=== PATIENT | female | born 1945 | race Caucasian/White ===

== ENCOUNTER 2016-04-18 12:58 | Emergency (ER) | payer OTHER ==
[~2016-04-18] VITALS: Ht 154.9 cm; Wt 67.0 kg
[2016-04-18 13:08] VITALS: TEMP 36.9; Ht 154.9 cm; Wt 67.0 kg
[2016-04-18] MEDS ORDERED: ATOR-22 PO (13:15)
[2016-04-18] MEDS ORDERED: TPRSR/50 PO (13:15)
[2016-04-18] MEDS ORDERED: OMEG10007 PO (13:15)
[2016-04-18] MEDS ORDERED: ASPI81TA28 PO (13:15)
[2016-04-18] MEDS ORDERED: LOSA50TA6 PO (13:15)
--- NOTE | 2016-04-18 14:15 | DIAGNOSTIC IMAGING REPORT ---
RIGHT KNEE 3 VIEWS CLINICAL HISTORY: Right knee pain and swelling. COMPARISON: None FINDINGS: There is mild lateral patellar tilt. Alignment is otherwise anatomic. There is no acute fracture or suspicious lesion. There is a moderate to large right knee joint effusion. IMPRESSION: 1. No acute fracture. 2. Moderate to large right knee joint effusion. Electronically signed by: Cesar Hernandez M.D. 04/18/2016 2:13 PM Dictated Date/Time: 04/18/2016 2:12 PM
[2016-04-18 14:36] VITALS: BP 175/105; PULSE 95; O2SAT 99
[2016-04-18] MEDS ORDERED: ACETAMINOPHEN 325 MG TAB PO STA (14:56)
--- NOTE | 2016-04-20 17:31 | EMERGENCY ROOM VISIT NOTE ---
ED Visit Note First contact with patient: 13:40 Chief Complaint: Right knee pain. History of Present Illness: Ms. Clement is a 70-year-old white female who is brought into the ED via wheelchair complaining of medial and anterior right knee pain. Patient reports earlier this morning, approximately approximately 5-6 hours ago , she slipped on wet grass and twisted her knee. She then fell onto her knee. She reports immediately after the injury she had some mild pain but was able to stand up and ambulate. Over the course of the last 5 hours she reports she has been noticing increasing pain and swelling of the knee. Currently she places the majority her discomfort over the medial joint line in the anterior knee including the patella. She describes her pain is a throbbing and achy sensation. She rates her discomfort 10/10. Her pain is nonradiating. Her pain worsens with palpation, weightbearing, knee flexion beyond 20, last few degrees of extension and hyperextension. She has not identified any alleviating factors related to the pain. She has not taken any medication for pain prior to arrival at the hospital. She denies any lightheadedness or dizziness before her fall, striking her head or loss of consciousness at the time of the fall, any signs of head injury since the fall, neck pain, back pain, nausea, vomiting, pain, lower leg pain, ankle pain, lower leg weakness/numbness/tingling. Review of Systems: As noted above in history of present illness. 5 body systems were reviewed and found to be negative as noted above. Past Medical History: Hypertension. Current Medications: Lipitor, metoprolol, Cozaar, aspirin, omega-3 fish oil. Allergies to Medications: Latex, morphine. Social History: Patient is not employed; she feels safe in her home environment ; she denies tobacco and alcohol use. Physical Examination: Vital Signs: Date Time Temp Pulse Resp B/P Pulse Ox O2 Delivery O2 Flow Rate FiO2 04/18/16 14:36 95 175/105 99 04/18/16 13:08 36.9 90 18 179/96 100 Room Air GENERAL: 70-year-old female in mild distress due to pain, nontoxic-appearing, afebrile and hemodynamically stable. NEUROLOGICAL: Awake, alert and oriented to person, place and time. Answering questions appropriately and following commands. Good hand eye coordination. No focal motor sensory deficits. SKIN: Warm, dry and pink. No soft tissue trauma noted. RIGHT LOWER EXTREMITY: No gross bony deformity. No shortening or bowel rotation. No tenderness over the hip or thigh. Moderate diffuse tenderness throughout the entire knee with slight prominence over the medial joint line and patella. Positive ballottement test. Positive patellar apprehension test. Patient is difficult to evaluate due to pain and swelling. I do not appreciate any laxity of the collateral or cruciate ligaments. I am not able to test for meniscus. Decreased range of motion with only approximately 20 of flexion and the last few degrees of extension and hyperextension. With the knee stabilized she has full range of motion in plantar flexion and dorsiflexion of the ankle and flexion and extension of the toes. Throughout the foot the skin was warm and pink and capillary refill is brisk. She was able to distinguish light sensations through all dermatomes of the lower leg and foot. ED Course: Patient is assessed as noted above. Right Knee X-Rays: Were read by myself and the radiologist showing no acute fractures or dislocations. Radiologist notes mild lateral patellar tilting, moderate to large joint effusion. Patient was given ice and 650 mg of acetaminophen for pain and swelling. Patient was placed in a knee immobilizer and instructed on her walker use. Patient's case was reviewed with Dr. Mcelroy; we agreed on diagnostic approach, achieving, disposition and plan. Patient was educated about tonight's findings and instructed on her treatment plan; she verbalizes understanding and agreement with this plan. Clinical Impression: Right knee pain and swelling. Disposition: Patient discharged home in stable condition accompanied by family member; prior to departure she was reassessed and subjectively reported she was feeling much better discomfort 04/28. Plan: Comfort measures were discussed with the patient including use of acetaminophen , ice, knee immobilizer and walker use. Patient was encouraged to follow-up with orthopedic physician if no better in 7- 10 days. Patient was encouraged return ED for worsening/uncontrolled pain, uncontrolled swelling, leg weakness/numbness/tingling or any new/concerning symptoms.
== END 2016-04-18 15:15 | disposition home or self-care (01) ==
LOC: C.EDB 12:59 → C.EDD 15:15
DX: M25.561 Pain in right knee (principal); M25.461 Effusion, right knee; W01.0XXA Fall on same level from slipping, tripping and stumbling without subsequent striking against object, initial encounter; I10 Essential (primary) hypertension; Z79.82 Long term (current) use of aspirin; Z79.899 Other long term (current) drug therapy

== ENCOUNTER → 2016-05-09 | Outpatient (CLI) | payer OTHER ==
[~2016-05-09] MED LIST: ASPI81TA28 PO; ATOR-22 PO; LOSA50TA6 PO; MECL1TAB40 PO; OMEG10007 PO; ONDA4TAB65 PO; TPRSR/50 PO
--- NOTE | 2016-05-09 12:47 | MAMMOGRAPHY REPORT ---
UNILATERAL RIGHT DIGITAL DIAGNOSTIC MAMMOGRAM TOMOSYNTHESIS WITH CAD AND TARGETED RIGHT ULTRASOUND: 05/09/2016 CLINICAL HISTORY: 70-year-old woman with a history of the right breast asymmetry that was thought to be secondary to fat necrosis due to her dog jumping on her chest. She presents for a short follow- up in the right breast. TECHNIQUE: Right CC and MLO 2-D digital and tomosynthesis images, spot compression right MLO 2-D dig ital and tomosynthesis images were obtained. Current study was also evaluated with a Computer Aided Detection (CAD) system. COMPARISON: Comparison is made to exams dated: 02/08/2016 ultrasound, 02/08/2016 mammogram, 016 mammogram, and 01/29/2015 mammogram - [facility]. BREAST COMPOSITION: The tissue of the right breast is heterogeneously dense, which may obscure smal l masses. FINDINGS: The previously observed 9 mm asymmetry in the upper inner far posterior right breast is no longer identified, confirming benignity. There are stable benign rim calcifications throughout the right breast. No new suspicious mass, architectural distortion or cluster of microcalcifications i s seen. Targeted ultrasound was performed in the 12:00, 1:00 and 2:00 axes of the right breast, 12 cm from t he nipple, in the area of previously observed mixed echogenicity mass thought to represent fat necro sis. No mass is identified in the 1:00 breast, 12 cm from the nipple. This is concordant with the mammographic findings and confirms benign fat necrosis/resolving hematoma. IMPRESSION: ACR BI-RADS CATEGORY 2: BENIGN, TARGETED ULTRASOUND ACR BI-RADS CATEGORY 2: BENIGN The right breast asymmetry is no longer seen mammographically, and the sonographic mass has also res olved, confirming a resolved hematoma and/or fat necrosis. There is no mammographic or targeted son ographic evidence of malignancy. Return to annual mammogram screening schedule is recommended. The patient has been verbally notified of the results. Approximately 10% of breast cancers are not detected with mammography. A negative mammographic repor t should not delay biopsy if a clinically suggestive mass is present. Beba Rivera M.D. ay/:05/09/2016 11:26:57 Bank Vault Clerk: Elly Fernandez, [facility] letter sent: Normal 1/2 BI-RADS Code: ACR BI-RADS Category 2: Benign Ultrasound BI-RADS: ACR BI-RADS Category 2: Benign
== END | disposition home or self-care (01) ==
LOC: C.MAMM 10:49
PROVIDERS: ATTEND Family Medicine
DX: N64.9 Disorder of breast, unspecified (principal)

== ENCOUNTER → 2016-05-11 | Outpatient (CLI) | payer OTHER ==
[2016-05-11 11:24] LABS: ALT/SGPT 31 U/L (12-78); AST/SGOT 17 U/L (15-37); BLOOD UREA NITROGEN 14 mg/dl (7-18); BUN/CREATININE RATIO 17.8 (10-20); CALCIUM 8.6 mg/dl (8.5-10.1); CARBON DIOXIDE 31 mmol/L (21-32); CHLORIDE 102 mmol/L (98-107); CREATININE 0.79 mg/dl (0.60-1.20); GLUCOSE 88 mg/dl (70-99); SODIUM 137 mmol/L (136-145)
[2016-05-11 11:25] LABS: ALB/GLOB RATIO 0.9 (0.9-2); ALKALINE PHOSPHATASE 74 U/L (45-117); CHOLESTEROL 131 mg/dl (0-200); CHOLESTEROL/HDL RATIO 2.3; HDL CHOLESTEROL 57 mg/dl; LDL CHOLESTEROL CALCULATED 59 mg/dl; TRIGLYCERIDES 76 mg/dl (0-150); VERY LOW DENSITY LIPOPROT CALC 15 mg/dl
[2016-05-11 11:37] LABS: ESTIMATED AVERAGE GLUCOSE 120 mg/dl; HA1C FLAG Normal (Normal)
--- NOTE | 2016-05-16 13:43 | CODING QUERY MEDICAL NECESSITY ---
SUPPORTING DIAGNOSIS NEEDED A supporting diagnosis is required for the test/procedure performed on this patient in order for us to be reimbursed by the patient's insurance. Please provide a supporting diagnosis for the following test/procedure listed below next to the test name along with your signature. *If there is no additional diagnosis for this patient that would support the following test/procedure please document that below next to the test/procedure. Test(s)/Procedure(s) that require a supporting diagnosis: DOS 05/11 * Hba1c DIAGNOSIS: Provider Signature: Date: Thank you Nena Godfrey Health Information Management Once completed, please kindly fax back to [phone] For questions please call [phone]
== END | disposition home or self-care (01) ==
LOC: C.LABBC 07:50
PROVIDERS: ATTEND Family Medicine
DX: I10 Essential (primary) hypertension (principal); E78.5 Hyperlipidemia, unspecified; E55.9 Vitamin D deficiency, unspecified; R73.03 Prediabetes

== ENCOUNTER 2016-06-14 12:12 | Observation (INO) | payer OTHER ==
[~2016-06-14] VITALS: Ht 165.1 cm; Wt 68.9 kg
[~2016-06-14 12:12] MED LIST changes: -MECL1TAB40 PO; -ONDA4TAB65 PO
[2016-06-14] MEDS ORDERED: SODIUM CHLORIDE 0.9% 1000ML 1,000 ML IV SCH (12:28)
--- NOTE | 2016-06-14 12:32 | EMERGENCY ROOM VISIT NOTE ---
History Report prepared by Natalie: Pop Bryan Under the Supervision of: Dr. Uli Wilcox D.O. First contact with patient: 12:22 Chief Complaint: WEAKNESS Stated Complaint: POSS. CVA History of Present Illness The patient is a 70 year old female who presents to the Emergency Room via EMS with complaints of persistent left-sided weakness that started about an hour ago. She states that she was shopping at [employer] and all of a sudden, she got really hot, dizzy, and nauseous. Her eyes started being unable to focus, she was very thirst, and she was dry heaving. The patient had weakness only on her left side, which has persisted. Her eyes are now able to focus. The patient then went straight to her primary care physician's office, and was told to come here for evaluation. The patient was given Valium and Zofran pre-hospital. She denies any vomiting. The patient notes that she had abdominal pain a few days ago but is not having it now. She has hyperlipidemia. The patient does not use tobacco products or drink alcohol. She has no cancer history or surgical history. Source of History: patient, spouse/significant other, EMS Onset: An hour ago Position: other (left-sided) Quality: other (weakness) Timing: other (persistent) Associated Symptoms: + headache, + nausea, No vomiting Note: Associated symptoms: Suddenly got really hot, dizzy. Was dry heaving. Eyes were unable to focus (has resolved). Review of Systems See HPI for pertinent positives & negatives. A total of 10 systems reviewed and were otherwise negative. Past Medical & Surgical Medical Problems: (1) HTN (hypertension) (2) Weakness Family History Diabetes mellitus Heart disease Hypertension Social History Smoking Status: Current Every Day Smoker Smokeless Tobacco Use: No Alcohol Use: occasionally Marital Status: Housing Status: lives with family Occupation Status: retired Current/Historical Medications Scheduled Aspirin (Aspirin Ec), 81 MG PO DAILY Atorvastatin (Lipitor), 20 MG PO DAILY Fish Oil ([place]-3), 1 CAP PO DAILY Losartan Potassium (Cozaar), 50 MG PO BID Meclizine HCl (Meclizine HCl), 1 TAB PO TID Meclizine HCl (Meclizine HCl), 1 TAB PO TID Metoprolol Succinate (Metoprolol Succinate ER), 50 MG PO BID Allergies Coded Allergies: Latex (Verified Allergy, Unknown, lip swelling, 06/14/16) Morphine (Verified Allergy, Unknown, headache,n/v, 06/14/16) Physical Exam Vital Signs Date Time Temp Pulse Resp B/P Pulse Ox O2 Delivery O2 Flow Rate FiO2 06/14/16 16:37 87 18 137/87 98 Room Air 06/14/16 16:31 87 06/14/16 14:30 82 21 161/104 99 06/14/16 14:15 173/104 06/14/16 14:01 176/135 06/14/16 14:00 80 18 97 06/14/16 13:45 152/96 06/14/16 13:30 79 21 164/98 97 06/14/16 13:16 160/93 06/14/16 13:00 83 29 131/102 06/14/16 12:46 80 20 158/105 97 Room Air 06/14/16 12:24 83 06/14/16 12:23 96 Room Air 06/14/16 12:23 36.6 91 20 155/93 95 Room Air Physical Exam GENERAL: Patient is awake, alert, somewhat anxious appearing but overall comfortable. EYES: The conjunctivae are clear. The pupils are round and reactive. Horizontal nystagmus in both directions. EARS, NOSE, MOUTH AND THROAT: The nose is without any evidence of any deformity. Mucous membranes are moist tongue is midline NECK: The neck is nontender and supple. RESPIRATORY: Normal respiratory effort is noted there is no evidence of wheezing rhonchi or rales CARDIOVASCULAR: Regular rate and rhythm noted there no murmurs rubs or gallops normal S1 normal S2 GASTROINTESTINAL: The abdomen is soft. Bowel sounds are present in all quadrants. Abdomen is nontender MUSCULOSKELETAL/EXTREMITIES: There is no evidence of gross deformity full range of motion is noted in the hips and shoulders SKIN: There is no obvious evidence of any rash. There are no petechiae, pallor or cyanosis noted. NEUROLOGIC: Patient is awake alert and oriented x3. No facial droop noted. Strength was symmetric in both upper and lower extremities. Medical Decision & Procedures ER Provider Diagnostic Interpretation: Radiology results as stated below per my review and radiologist interpretation: CT SCAN OF THE BRAIN WITHOUT IV CONTRAST CLINICAL HISTORY: Strokelike symptoms. COMPARISON STUDY: No priors. TECHNIQUE: Unenhanced axial CT scan of the brain is performed from the vertex to the skull base. CT DOSE: 537.48 mGy.cm FINDINGS: Brain parenchyma: There is minimal subcortical and periventricular microangiopathic change. There is no hemorrhage, mass effect, or evidence of acute territorial ischemia by CT criteria. Mendes-white matter is preserved. No extra-axial fluid collection is seen. Ventricles, sulci, cisterns: Prominent secondary to involutional change. Intracranial vasculature: There is minimal atherosclerotic calcification of the cavernous carotid arteries. Calvarium: Unremarkable. Sinuses and mastoids: The visualized paranasal sinuses are clear. The mastoid air cells are well pneumatized. Orbits: The bony orbits are grossly intact. IMPRESSION: There is no hemorrhage, mass effect, or evidence of acute territorial ischemia by CT criteria. Electronically signed by: Shayan Harris M.D. 06/14/2016 1:06 PM Dictated Date/Time: 06/14/2016 1:04 PM CHEST ONE VIEW PORTABLE CLINICAL HISTORY: Stroke COMPARISON STUDY: No previous studies for comparison. FINDINGS: The heart is borderline enlarged. There is no failure. There is no focal pulmonary consolidation. There are no pleural effusions. 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 Electronically signed by: Zeeshan Reese M.D. 06/14/2016 12:44 PM Dictated Date/Time: 06/14/2016 12:44 PM Laboratory Results Test 06/14/16 12:05 06/14/16 13:09 Immature Granulocyte % (Auto) 0.1 % White Blood Count 7.13 K/uL (4.8-10.8) Red Blood Count 4.86 M/uL (4.2-5.4) Hemoglobin 12.9 g/dL (12.0-16.0) Hematocrit 40.0 % (37-47) Mean Corpuscular Volume 82.3 fL (80-100) Mean Corpuscular Hemoglobin 26.5 pg (25-34) Mean Corpuscular Hemoglobin Concent 32.3 g/dl (32-36) Platelet Count 310 K/uL (130-400) Mean Platelet Volume 9.6 fL (7.4-10.4) Neutrophils (%) (Auto) 58.9 % Lymphocytes (%) (Auto) 30.9 % Monocytes (%) (Auto) 7.0 % Eosinophils (%) (Auto) 2.5 % Basophils (%) (Auto) 0.6 % Neutrophils # (Auto) 4.20 K/uL (1.4-6.5) Lymphocytes # (Auto) 2.20 K/uL (1.2-3.4) Monocytes # (Auto) 0.50 K/uL (0.11-0.59) Eosinophils # (Auto) 0.18 K/uL (0-0.5) Basophils # (Auto) 0.04 K/uL (0-0.2) Immature Granulocyte # (Auto) 0.01 K/uL (0.00-0.02) Prothrombin Time 10.7 SECONDS (9.0-12.0) Prothromb Time International Ratio 1.0 (0.9-1.1) Activated Partial Thromboplast Time 25.2 SECONDS (21.0-31.0) Partial Thromboplastin Ratio 1.0 Estimated Average Glucose 114 mg/dl Hemoglobin A1c 5.6 % (4.5-5.6) Total Bilirubin 0.3 mg/dl (0.2-1) Direct Bilirubin 0.1 mg/dl (0-0.2) Aspartate Amino Transf (AST/SGOT) 22 U/L (15-37) Alanine Aminotransferase (ALT/SGPT) 35 U/L (12-78) Alkaline Phosphatase 78 U/L (45-117) Total Creatine Kinase 88 U/L (26-192) Creatine Kinase MB 1.1 ng/ml (0.5-3.6) Creatine Kinase MB Ratio 1.3 (0-3.0) Total Protein 7.7 gm/dl (6.4-8.2) Albumin 3.9 gm/dl (3.4-5.0) Urine Color YELLOW Urine Appearance CLEAR (CLEAR) Urine pH 8.0 (4.5-7.5) Urine Specific [place] 1.016 (1.000-1.030) Urine Protein NEG (NEG) Urine Glucose (UA) NEG (NEG) Urine Ketones NEG (NEG) Urine Occult Blood 2+ (NEG) Urine Nitrite NEG (NEG) Urine Bilirubin NEG (NEG) Urine Urobilinogen NEG (NEG) Urine Leukocyte Esterase NEG (NEG) Urine WBC (Auto) 0 /hpf (0-5) Urine RBC (Auto) >30 /hpf (0-4) Urine Hyaline Casts (Auto) 0 /lpf (0-5) Urine Epithelial Cells (Auto) 10-20 /lpf (0-5) Urine Bacteria (Auto) NEG (NEG) Urine Opiates Screen NEG (NEG) Urine Methadone, Qualitative NEG (NEG) Urine Barbiturates NEG (NEG) Urine Phencyclidine (PCP) Level NEG (NEG) Ur Amphetamine/Methamphetamine NEG (NEG) MDMA (Ecstasy) Screen NEG (NEG) Urine Benzodiazepines Screen NEG (NEG) Urine Cocaine Metabolite NEG (NEG) Urine Marijuana (THC) NEG (NEG) Laboratory results per my review. Medications Administered Medications (Trade) Dose Ordered Sig/Jesús Route Start Time Stop Time Status Last Admin Dose Admin Sodium Chloride (Nss 1000ml) 1,000 ml @ 50 mls/hr Q20H IV 06/14/16 12:28 06/14/16 16:58 DC 06/14/16 12:28 50 MLS/HR ECG Indication: other (dizziness) Rate (beats per minute): 85 Rhythm: normal sinus Findings: no ectopy, other (LVH noted by voltage criteria) Comparison ECG Date: no prior available ED Course 1222: The patient was evaluated in room C3. A complete history and physical examination were performed. 1228: Ordered NSS 1000 ml @ 50 mls/hr IV. 1459: I reevaluated the patient and she is resting comfortably. The patient verbally expressed understanding and agreement with the treatment plan. The patient will be evaluated for further treatment. 1515: I discussed the patient with Dr. Cao - [facility] electroencephalogram technologist. She will evaluate the patient for further treatment. Medical Decision Prior records/ancillary studies reviewed. Triage Nursing notes reviewed. Differential diagnosis: Etiologies such as benign positional vertigo, dehydration, hypovolemia, anemia, tumor, infection, hypoglycemia, electrolyte abnormalities, cardiac sources, intracerebral event, toxicologic, neurologic, as well as others were entertained. The patient is a 70-year-old female who presented to the emergency department for an evaluation of vertigo. The patient also complained of numbness and subjective weakness over the left side of her body. These symptoms significantly improved prior to arrival. She was treated with Zofran and Valium by the prehospital personnel prior to arrival. She had no weakness on physical exam but still had some degree of vertigo. I discussed the patient's laboratory and radiographic studies with her. It still is possible this could represent a TIA or possibly vertebrobasilar insufficiency. For this reason I discussed her case with the on-call [facility] hospitalist group. They've agreed to evaluate the patient in the emergency department for further management and disposition. Consults Time Called: 1505 Consulting Physician: Dr. Nash MIRANDA electroencephalogram technologist Returned Call: 1515 I discussed the patient with Dr. Nash MIRANDA electroencephalogram technologist. She will evaluate the patient for further treatment. Impression Primary Impression: TIA (transient ischemic attack) Additional Impression: Vertigo Scribe Attestation The scribe's documentation has been prepared under my direction and personally reviewed by me in its entirety. I confirm that the note above accurately reflects all work, treatment, procedures, and medical decision making performed by me. Reason t-PA Not Given Treatment not indicated Strict Exclusion Criteria Complete resolution of symptoms (NI Departure Information Dispostion Being Evaluated By Hospitalist Prescriptions Meclizine HCl (Meclizine HCl) 12.5 Mg Tab 1 TAB PO TID for 10 Days, #30 TAB Prov: Brittney Russell MD 06/15/16 Meclizine HCl (Meclizine HCl) 12.5 Mg Tab 1 TAB PO TID for 10 Days, #30 TAB Prov: Brittney Russell MD 06/15/16 Referrals Herminia Garcia DO (PCP) Patient Instructions My [facility] Health Problem Qualifiers
[2016-06-14 12:44] LABS: BASO % 0.6 %; BASO ABS # 0.04 K/uL (0-0.2); COMPLETE YES; EOS % 2.5 %; IG% 0.1 %; LYMPH % 30.9 %; MEAN CELL VOLUME 82.3 fL (80-100); MEAN CORPUSCULAR HEMOGLOBIN 26.5 pg (25-34); MEAN CORPUSCULAR HGB CONC 32.3 g/dl (32-36); MEAN PLATELET VOLUME 9.6 fL (7.4-10.4); NEUT % 58.9 %; PLATELET COUNT 310 K/uL (130-400); RED BLOOD COUNT 4.86 M/uL (4.2-5.4); WHITE BLOOD COUNT 7.13 K/uL (4.8-10.8)
--- NOTE | 2016-06-14 12:47 | DIAGNOSTIC IMAGING REPORT ---
CHEST ONE VIEW PORTABLE CLINICAL HISTORY: Stroke COMPARISON STUDY: No previous studies for comparison. FINDINGS: The heart is borderline enlarged. There is no failure. There is no focal pulmonary consolidation. There are no pleural effusions. 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 Electronically signed by: Zeeshan Reese M.D. 06/14/2016 12:44 PM Dictated Date/Time: 06/14/2016 12:44 PM
[2016-06-14 12:51] LABS: PROTHROMBIN TIME (PATIENT) 10.7 SECONDS (9.0-12.0)
[2016-06-14 12:55] LABS: CALCIUM 9.4 mg/dl (8.5-10.1)
[2016-06-14 12:56] LABS: ALT/SGPT 35 U/L (12-78); BLOOD UREA NITROGEN 22 mg/dl (7-18); BUN/CREATININE RATIO 29.6 (10-20); CARBON DIOXIDE 23 mmol/L (21-32); CHLORIDE 100 mmol/L (98-107); CREATININE 0.73 mg/dl (0.60-1.20); GLUCOSE 151 mg/dl (70-99); POTASSIUM 3.4 mmol/L (3.5-5.1); SODIUM 134 mmol/L (136-145)
[2016-06-14 13:01] LABS: ALKALINE PHOSPHATASE 78 U/L (45-117); AST/SGOT 22 U/L (15-37); CKMB/CK RATIO 1.3 (0-3.0)
--- NOTE | 2016-06-14 13:08 | DIAGNOSTIC IMAGING REPORT ---
CT SCAN OF THE BRAIN WITHOUT IV CONTRAST CLINICAL HISTORY: Strokelike symptoms. COMPARISON STUDY: No priors. TECHNIQUE: Unenhanced axial CT scan of the brain is performed from the vertex to the skull base. CT DOSE: 537.48 mGy.cm FINDINGS: Brain parenchyma: There is minimal subcortical and periventricular microangiopathic change. There is no hemorrhage, mass effect, or evidence of acute territorial ischemia by CT criteria. Mendes-white matter is preserved. No extra-axial fluid collection is seen. Ventricles, sulci, cisterns: Prominent secondary to involutional change. Intracranial vasculature: There is minimal atherosclerotic calcification of the cavernous carotid arteries. Calvarium: Unremarkable. Sinuses and mastoids: The visualized paranasal sinuses are clear. The mastoid air cells are well pneumatized. Orbits: The bony orbits are grossly intact. IMPRESSION: There is no hemorrhage, mass effect, or evidence of acute territorial ischemia by CT criteria. Electronically signed by: Shayan Harris M.D. 06/14/2016 1:06 PM Dictated Date/Time: 06/14/2016 1:04 PM
[2016-06-14 13:35] LABS: MANUAL MICROSCOPIC REQUIRED? NO; REVIEW REQ? NO; URINE APPEARANCE CLEAR (CLEAR); URINE BILIRUBIN NEG (NEG); URINE COLOR YELLOW; URINE NITRITE NEG (NEG); URINE SPECIFIC GRAVITY 1.016 (1.000-1.030); UROBILINOGEN NEG (NEG)
[2016-06-14 14:29] LABS: BENZODIAZEPINE, URINE NEG (NEG); COCAINE,URINE NEG (NEG); PHENCYCLIDINE, URINE NEG (NEG)
[2016-06-14] MEDS ORDERED: MAGNESIUM HYDROXIDE SUSP 30 ML UDC PO PRN (16:45)
[2016-06-14] MEDS ORDERED: PHARMACIST DISCHARGE MED REC CONSULT PRN (16:45)
[2016-06-14] MEDS ORDERED: ALUMINUM/MAGNESIUM/SIMETH (MAALOX MAX) 30 ML UDC PO PRN (16:45)
[2016-06-14] MEDS ORDERED: POLYETHYLENE (MIRALAX) 17 GM PACK PO PRN (16:45)
[2016-06-14] MEDS ORDERED: ACETAMINOPHEN 325 MG TAB PO PRN (16:45)
[2016-06-14] MEDS ORDERED: ONDANSETRON INJ 2 MG/ML 2 ML VIAL IV PRN (16:45)
[2016-06-14] MEDS ORDERED: POTASSIUM CHLORIDE 10 MEQ TABCR PO STA (16:57)
[2016-06-14 17:20] VITALS: O2SAT 98; Ht 165.1 cm; Wt 68.9 kg
[2016-06-14] MEDS ORDERED: IV FLUIDS COMPLETED PRN (17:30)
--- NOTE | 2016-06-14 18:31 | DIAGNOSTIC IMAGING REPORT ---
BILATERAL CAROTID DOPPLER STUDY HISTORY: Possible TIA COMPARISON: None. TECHNIQUE: Real-time, grayscale, and color Doppler sonography of the carotid arteries was performed. Imaging reviewed in the transverse and longitudinal planes. All measurements were calculated based on NASCET criteria. FINDINGS: Antegrade flow is seen in the bilateral vertebral arteries. The brachial pressures are hemodynamically similar. Focus of mild calcified plaque within the right carotid bulb. The peak systolic velocity within the right ICA is 42 cm/s. The right systolic ratio is 0.7. The peak systolic velocity within the left ICA is 71 cm/s. The left systolic ratio is 1. IMPRESSION: No hemodynamically significant stenosis seen within the carotid arteries. Electronically signed by: Barber Sepulveda M.D. 06/14/2016 6:29 PM Dictated Date/Time: 06/14/2016 6:28 PM
[2016-06-14 18:35] VITALS: BP 153/87; PULSE 91; TEMP 36.6; O2SAT 97
--- NOTE | 2016-06-14 19:20 | History and Physical ---
History & Physical Date & Time of Service: Jun 14, 2016 at 19:01 Chief Complaint: Vertigo, Weakness Primary Care Physician: Herminia Garcia DO History of Present Illness Source: patient, parent, clinic records, hospital records This is a 70 y/o female with a history of hypertension, hyperlipidemia, and restless leg syndrome who presented to the ED on 06/14 with weakness, dizziness and nausea. The patient was out shopping with her when she suddenly felt warm all over. This was accompanied with dizziness and a sensation of the room spinning as well as nausea. The patient states she started dry heaving but denies actually vomiting. She states that she felt generally weak but felt that she might be somewhat weaker on the left side. Patient denies any facial droop, slurred speech, numbness or tingling, sudden vision loss or loss of consciousness. Despite her weakness/dizziness, the patient was able to walk out of the store unassisted without any difficulties. The patient states that a few nights ago she did experienced some weakness and pain in her left leg that had resolved on its own. She is unsure if she truly had left-sided weakness today or if she is just more aware of her left side due to the pain in her left leg previously. In the ambulance en route to the ED the patient received Valium and Zofran. Her nausea and weakness have resolved, and she no longer reports that the room spinning or any visual problems. She is still feeling lightheaded whenever she sits up or gets up to go the bathroom. The patient denies fevers, chills, sweats, chest pain, palpitations, claudication, cough, wheezing, shortness of breath, vomiting, abdominal pain, dysuria, hematuria, urinary retention, paralysis, numbness and tingling. Past Medical/Surgical History Medical Problems: (1) HTN (hypertension) Status: Chronic HLD RLS Nontoxic goiter Family History Coronary artery disease Diabetes mellitus Heart disease Hypertension Myelodysplasia Myocardial infarction Ovarian cancer Social History Smoking Status: Never Smoker Smokeless Tobacco Use: No Alcohol Use: socially (1 glass of wine with dinner) Drug Use: none Marital Status: Housing status: lives with significant other Occupational Status: retired Allergies Coded Allergies: Latex (Verified Allergy, Unknown, lip swelling, 06/14/16) Morphine (Verified Allergy, Unknown, headache,n/v, 06/14/16) Home Medications Scheduled Aspirin (Aspirin Ec), 81 MG PO DAILY Atorvastatin (Lipitor), 20 MG PO DAILY Fish Oil ([place]-3), 1 CAP PO DAILY Losartan Potassium (Cozaar), 50 MG PO BID Metoprolol Succinate (Metoprolol Succinate ER), 50 MG PO BID Review of Systems Constitutional: + problem reported (lightheaded), + weakness (resolved), No chills, No fever, No sweats Eyes: + problem reported (room appeared to be spinning. Difficulty focusing. Now resolved), No eye pain, No worsening of vision ENT: No hearing loss, No sore throat, No trouble swallowing Respiratory: No cough, No shortness of breath, No wheezing Cardiovascular: No chest pain, No claudication, No palpitations Abdomen: + nausea (resolved), No pain, No vomiting Musculoskeletal: No calf pain, No joint pain, No muscle pain Genitourinary - Female: No dysuria, No hematuria, No urinary retention Neurologic: + vertigo (resolved), No numbness/tingling, No paralysis, No weakness Integumentary: No color change, No itch, No rash Physical Exam Vital Signs Date Time Temp Pulse Resp B/P Pulse Ox O2 Delivery O2 Flow Rate FiO2 06/14/16 17:55 88 24 142/84 96 Room Air 06/14/16 17:20 98 Room Air 06/14/16 16:37 87 18 137/87 98 Room Air 06/14/16 16:31 87 06/14/16 14:30 82 21 161/104 99 06/14/16 14:15 173/104 06/14/16 14:01 176/135 06/14/16 14:00 80 18 97 06/14/16 13:45 152/96 06/14/16 13:30 79 21 164/98 97 06/14/16 13:16 160/93 06/14/16 13:00 83 29 131/102 06/14/16 12:46 80 20 158/105 97 Room Air 06/14/16 12:24 83 06/14/16 12:23 96 Room Air 06/14/16 12:23 36.6 91 20 155/93 95 Room Air General Appearance: WD/WN, no apparent distress Head: normocephalic, atraumatic Eyes: normal inspection, PERRL, EOMI ENT: normal ENT inspection, hearing grossly normal, pharynx normal Neck: supple, no JVD, trachea midline Respiratory/Chest: lungs clear, normal breath sounds, no respiratory distress Cardiovascular: regular rate, rhythm, no gallop, no murmur Abdomen/GI: normal bowel sounds, non tender, soft Extremities/Musculoskelatal: normal inspection, no calf tenderness, no pedal edema Neurologic/Psych: no motor/sensory deficits, alert, normal mood/affect, oriented x 3, + pertinent finding (lightheadedness elicited when patient asked to set up) Skin: normal color, warm/dry, no rash Diagnostics Laboratory Results Results Past 24 Hours Test 06/14/16 12:05 06/14/16 13:09 Range/Units White Blood Count 7.13 4.8-10.8 K/uL Red Blood Count 4.86 4.2-5.4 M/uL Hemoglobin 12.9 12.0-16.0 g/dL Hematocrit 40.0 37-47 % Mean Corpuscular Volume 82.3 80-100 fL Mean Corpuscular Hemoglobin 26.5 25-34 pg Mean Corpuscular Hemoglobin Concent 32.3 32-36 g/dl Platelet Count 310 130-400 K/uL Mean Platelet Volume 9.6 7.4-10.4 fL Neutrophils (%) (Auto) 58.9 % Lymphocytes (%) (Auto) 30.9 % Monocytes (%) (Auto) 7.0 % Eosinophils (%) (Auto) 2.5 % Basophils (%) (Auto) 0.6 % Neutrophils # (Auto) 4.20 1.4-6.5 K/uL Lymphocytes # (Auto) 2.20 1.2-3.4 K/uL Monocytes # (Auto) 0.50 0.11-0.59 K/uL Eosinophils # (Auto) 0.18 0-0.5 K/uL Basophils # (Auto) 0.04 0-0.2 K/uL RDW Standard Deviation 43.1 36.4-46.3 fL RDW Coefficient of Variation 14.3 11.5-14.5 % Immature Granulocyte % (Auto) 0.1 % Immature Granulocyte # (Auto) 0.01 0.00-0.02 K/uL Prothrombin Time 10.7 9.0-12.0 SECONDS Prothromb Time International Ratio 1.0 0.9-1.1 Activated Partial Thromboplast Time 25.2 21.0-31.0 SECONDS Partial Thromboplastin Ratio 1.0 Sodium Level 134 136-145 mmol/L Potassium Level 3.4 3.5-5.1 mmol/L Chloride Level 100 98-107 mmol/L Carbon Dioxide Level 23 21-32 mmol/L Anion Gap 11.0 3-11 mmol/L Blood Urea Nitrogen 22 7-18 mg/dl Creatinine 0.73 0.60-1.20 mg/dl Est Creatinine Clear Calc Drug Dose 67.5 ml/min Estimated GFR () 97.4 Estimated GFR (Non- 84.0 BUN/Creatinine Ratio 29.6 10-20 Random Glucose 151 70-99 mg/dl Calcium Level 9.4 8.5-10.1 mg/dl Total Bilirubin 0.3 0.2-1 mg/dl Direct Bilirubin 0.1 0-0.2 mg/dl Aspartate Amino Transf (AST/SGOT) 22 15-37 U/L Alanine Aminotransferase (ALT/SGPT) 35 12-78 U/L Alkaline Phosphatase 78 45-117 U/L Total Creatine Kinase 88 26-192 U/L Creatine Kinase MB 1.1 0.5-3.6 ng/ml Creatine Kinase MB Ratio 1.3 0-3.0 Troponin I < 0.015 0-0.045 ng/ml Total Protein 7.7 6.4-8.2 gm/dl Albumin 3.9 3.4-5.0 gm/dl Urine Color YELLOW Urine Appearance CLEAR CLEAR Urine pH 8.0 4.5-7.5 Urine Specific [place] 1.016 1.000-1.030 Urine Protein NEG NEG Urine Glucose (UA) NEG NEG Urine Ketones NEG NEG Urine Occult Blood 2+ NEG Urine Nitrite NEG NEG Urine Bilirubin NEG NEG Urine Urobilinogen NEG NEG Urine Leukocyte Esterase NEG NEG Urine WBC (Auto) 0 0-5 /hpf Urine RBC (Auto) >30 0-4 /hpf Urine Hyaline Casts (Auto) 0 0-5 /lpf Urine Epithelial Cells (Auto) 10-20 0-5 /lpf Urine Bacteria (Auto) NEG NEG Urine Opiates Screen NEG NEG Urine Methadone, Qualitative NEG NEG Urine Barbiturates NEG NEG Urine Phencyclidine (PCP) Level NEG NEG Ur Amphetamine/Methamphetamine NEG NEG MDMA (Ecstasy) Screen NEG NEG Urine Benzodiazepines Screen NEG NEG Urine Cocaine Metabolite NEG NEG Urine Marijuana (THC) NEG NEG Diagnostic Radiology Reviewed the following studies and agree with interpretation as follows: Patient Name: HARDEEP SANTAMARIA Unit Number: [id number] Dictated: 06/14/161303 Transcribed: 06/14/161303 EV Printed Date/Time: [~ rep prt dt]/[~ rep prt tm] [~ rep ct labl] - [~ rep ct ivnm] [facility] [place] [address] Dictated: 06/14/161303 Transcribed: 06/14/161303 EV Printed Date/Time: [~ rep prt dt]/[~ rep prt tm] [~ rep ct labl] - [~ rep ct ivnm] Patient: HARDEEP SANTAMARIA Address1: [address] Rec: [id number] Address2: Acct ID: [id number] [facility] Zip: [place] [address] Date: 1945 Sex: F Room/Bed: Ref Phy: Herminia Garcia DO SC: CMarahEDC Att Phy: Report #: [id number] Yovana Phy: Herminia Garcia DO Test: HWO Admit Phy: Academic Records Specialist: ANGEL Interpreting Phy: Shayan Harris M.D. Diagnosis: POSS. CVA Ordering Phy: Uli Wilcox D.O. Service Date: 06/14/16 Admit Date: 06/14/16 MNE: PWRSCRIBE CONF: DICTATED BY: Shayan Harris M.D.]] CC: Uli Wilcox DO Ricotta, Cara M., DO Endcc: [~ rep ct add3]] CT SCAN OF THE BRAIN WITHOUT IV CONTRAST CLINICAL HISTORY: Strokelike symptoms. COMPARISON STUDY: No priors. TECHNIQUE: Unenhanced axial CT scan of the brain is performed from the vertex to the skull base. CT DOSE: 537.48 mGy.cm FINDINGS: Brain parenchyma: There is minimal subcortical and periventricular microangiopathic change. There is no hemorrhage, mass effect, or evidence of acute territorial ischemia by CT criteria. Mendes-white matter is preserved. No extra-axial fluid collection is seen. Ventricles, sulci, cisterns: Prominent secondary to involutional change. Intracranial vasculature: There is minimal atherosclerotic calcification of the cavernous carotid arteries. Calvarium: Unremarkable. Sinuses and mastoids: The visualized paranasal sinuses are clear. The mastoid air cells are well pneumatized. Orbits: The bony orbits are grossly intact. IMPRESSION: There is no hemorrhage, mass effect, or evidence of acute territorial ischemia by CT criteria. Electronically signed by: Shayan Harris M.D. 06/14/2016 1:06 PM Dictated Date/Time: 06/14/2016 1:04 PM The status of this report is Signed. Draft = Not yet reviewed or approved by Radiologist. Signed = Reviewed and approved by Radiologist. <AttendingPhy></AttendingPhy> <FamilyPhy>Herminia Garcia DO</FamilyPhy> < PrimaryPhy>Herminia Garcia DO</PrimaryPhy> <UnitNumber>[id number]</UnitNumber > <VisitNumber>[id number]</VisitNumber> <PatientName>HARDEEP SANTAMARIA</ PatientName> <DateOfBirth>1945</DateOfBirth> <Location>[facility]</Location> < ServiceDate>06/14/16</ServiceDate> <MNE>ESINDI</MNE> <OrderingPhy>Uli Wilcox D.O.</OrderingPhy> <OrderingPhyMNE>f rep ord dr hudson</OrderingPhyMNE> <DictatingPhyMNE>f rep dict dr hudson</DictatingPhyMNE> <CCListMNE>f rep ct [facility]</ CCListMNE> <AdmittingPhyMNE>f pt admit dr hudson</AdmittingPhyMNE> <AttendingPhyMNE >f pt attend dr hudson</AttendingPhyMNE> <ConsultingPhyMNE>f pt consult dr hudson</ConsultingPhyMNE> <FamilyPhyMNE>f pt fam dr hudson</FamilyPhyMNE> <OtherPhyMNE>f pt other dr hudson</OtherPhyMNE> < PrimaryPhyMNE>f pt prim care dr hudson</PrimaryPhyMNE> <ReferringPhyMNE>f pt referring dr hudson</ReferringPhyMNE> Patient Name: HARDEEP SANTAMARIA Unit Number: [id number] Dictated: 06/14/161243 Transcribed: 06/14/161243 ARG Printed Date/Time: [~ rep prt dt]/[~ rep prt tm] [~ rep ct labl] - [~ rep ct ivnm] [facility] [place] [address] Dictated: 06/14/161243 Transcribed: 06/14/161243 ARG Printed Date/Time: [~ rep prt dt]/[~ rep prt tm] [~ rep ct labl] - [~ rep ct ivnm] Patient: HARDEEP SANTAMARIA Address1: [address] [place] [address] Rec: [id number] Address2: Acct ID: [id number] [facility] Zip: [place] [address] Date: 1945 Sex: F Room/Bed: Ref Phy: Herminia Garcia DO SC: CMarahEDC Att Phy: Report #: [id number] Yovana Phy: Herminia Garcia DO Test: CXR1P Admit Phy: Academic Records Specialist: CAMILLE Interpreting Phy: Zeeshan Reese M.D. Diagnosis: POSS. CVA Ordering Phy: Uli Wilcox D.O. Service Date: 06/14/16 Admit Date: 06/14/16 MNE: PWRSCRIBE CONF: DICTATED BY: Zeeshan Reese M.D.]] CC: Uli Wilcox, Herminia York DO Endcc: [~ rep ct add3]] CHEST ONE VIEW PORTABLE CLINICAL HISTORY: Stroke COMPARISON STUDY: No previous studies for comparison. FINDINGS: The heart is borderline enlarged. There is no failure. There is no focal pulmonary consolidation. There are no pleural effusions. 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 Electronically signed by: Zeeshan Reese M.D. 06/14/2016 12:44 PM Dictated Date/Time: 06/14/2016 12:44 PM The status of this report is Signed. Draft = Not yet reviewed or approved by Radiologist. Signed = Reviewed and approved by Radiologist. <AttendingPhy></AttendingPhy> <FamilyPhy>Herminia Garcia, DO</FamilyPhy> < PrimaryPhy>Herminia Garcia, DO</PrimaryPhy> <UnitNumber>[id number]</UnitNumber > <VisitNumber>[id number]</VisitNumber> <PatientName>HARDEEP SANTAMARIA</ PatientName> <DateOfBirth>1945</DateOfBirth> <Location>C.EDC</Location> < ServiceDate>06/14/16</ServiceDate> <MNE>ESINDI</MNE> <OrderingPhy>Uli Wilcox D.O.</OrderingPhy> <OrderingPhyMNE>f rep ord dr hudson</OrderingPhyMNE> <DictatingPhyMNE>f rep dict dr hudson</DictatingPhyMNE> <CCListMNE>f rep ct mne</ CCListMNE> <AdmittingPhyMNE>f pt admit dr hudson</AdmittingPhyMNE> <AttendingPhyMNE >f pt attend dr hudson</AttendingPhyMNE> <ConsultingPhyMNE>f pt consult dr hudson</ConsultingPhyMNE> <FamilyPhyMNE>f pt fam dr hudson</FamilyPhyMNE> <OtherPhyMNE>f pt other dr hudson</OtherPhyMNE> < PrimaryPhyMNE>f pt prim care dr hudson</PrimaryPhyMNE> <ReferringPhyMNE>f pt referring dr hudson</ReferringPhyMNE> EKG Reviewed EKG and agree with interpretation as follows: 85 bpm, NSR Impression Assessment and Plan 70 y/o female with a history of hypertension, hyperlipidemia, and restless leg syndrome who presented to the ED on 06/14 with weakness, dizziness and nausea. Patient developed a sudden warm sensation associated with dizziness and nausea. Patient states that the room was spinning and she felt generally weak, more so on the left side. Vital signs stable on arrival. Head CT negative for any acute findings. CXR negative for acute disease. EKG showed no ischemic changes. Troponin negative. Labs grossly unremarkable. Vertigo vs possible TIA -Admitted to telemetry for observation -Carotid artery ultrasound -Echocardiogram -PT/OT ordered, may provide relief with Stevo maneuver -Recent lipid panel on 05/11/16 within normal limits -Hemoglobin A1c checked on 05/11/16 was 5.8 -Continue ASA 81 mg PO qd HTN--stable -Continue losartan 50 mg PO BID and metoprolol succinate 50 mg PO BID HLD -Continue atorvastatin 20 mg PO qd DVT prophylaxis -Enoxaparin 40 mg SC q24h -TYESHA cross and Sandor Code Status -Level I, FULL RESUSCITATION STATUS This chart was completed in part utilizing [employer] Speech Voice Recognition software. Attempts were made to minimize the grammatical errors, random word insertions, pronoun errors and incomplete sentences. Any formal questions or concerns about the content, text or information contained within the body of this dictation should be directly addressed to the provider for clarification. Level of Care Telemetry Advanced Directives Existing Living Will: No Existing Power of Noxious Weeds And Pest Inspector: No Resuscitation Status FULL RESUSCITATION VTE Prophylaxis VTE Risk Assessment Done? Y/N: Yes Risk Level: Moderate Given or contraindicated: Enoxaparin (Lovenox)SQ, T.E.D. Stockings, SCD's Reviewed: Pt Seen/Exam by Me History Pt is feeling a bit improved. She got up to go to the restroom just prior to my arrival to the room and states there was minimal lightheadedness now. Weakness is resolved. No further nausea. No hx of prior. States that Sunday she had some twinges of pain into her LLE and that Sunday she had some L sided pain, both of which were new for her and resolved. Denies missing medications. General Appearance: WD/WN, no apparent distress Respiratory: normal breath sounds, no respiratory distress Cardiovascular: normal peripheral pulses, regular rate, rhythm Gastrointestinal: non tender, soft Extremities: non-tender, no pedal edema Neurologic/Psychiatric: training program manager II-XII nml as tested, alert, normal mood/affect, oriented x 3 Skin Characteristics: normal color, warm/dry Assessment/Plan Agree with plan as outlined above Vertigo vs cardiac seems most likely dx Initial concern for TIA/CVA, but sx are not c/w this. Hold on MRI for now ECHO, carotid US pending PT if ongoing sx
[2016-06-14 20:00] VITALS: O2SAT 97
[2016-06-14] MEDS: LOSARTAN POTASSIUM 50 MG TAB PO SCH (20:50)
[2016-06-14] MEDS: METOPROLOL SUCC 50MG EXT REL TAB PO SCH (20:51)
[2016-06-14] MEDS ORDERED: ENOXAPARIN 40 MG/0.4 ML SYR SC SCH (21:00)
[2016-06-14 23:40] VITALS: BP 148/92; PULSE 77; TEMP 36.7; O2SAT 96
[2016-06-14 23:42] VITALS: BP 135/99; PULSE 79
[2016-06-14 23:43] VITALS: BP 141/98; PULSE 84
[2016-06-15 03:55] VITALS: BP 134/82; PULSE 71; TEMP 36.6; O2SAT 98
[2016-06-15] MEDS ORDERED: PNEUMOCOCCAL ADMINISTRATION CHARGE ONE (05:15)
[2016-06-15] MEDS ORDERED: PNEUMOCOCCAL POLYSACCHARIDES 25 MCG/0.5 ML VIAL/SYR IM. ONE (05:15)
[2016-06-15 05:25] LABS: BLOOD UREA NITROGEN 16 mg/dl (7-18); BUN/CREATININE RATIO 20.8 (10-20); CARBON DIOXIDE 29 mmol/L (21-32); CHLORIDE 103 mmol/L (98-107); CHOLESTEROL 126 mg/dl (0-200); CHOLESTEROL/HDL RATIO 2.2; CREATININE 0.77 mg/dl (0.60-1.20); GLUCOSE 90 mg/dl (70-99); HDL CHOLESTEROL 58 mg/dl; LDL CHOLESTEROL CALCULATED 52 mg/dl; POTASSIUM 4.4 mmol/L (3.5-5.1); SODIUM 137 mmol/L (136-145); TRIGLYCERIDES 79 mg/dl (0-150); VERY LOW DENSITY LIPOPROT CALC 16 mg/dl
[2016-06-15 06:48] LABS: HEMATOCRIT 37.5 % (37-47); MEAN CELL VOLUME 83.7 fL (80-100); MEAN CORPUSCULAR HEMOGLOBIN 27.2 pg (25-34); MEAN CORPUSCULAR HGB CONC 32.5 g/dl (32-36); MEAN PLATELET VOLUME 9.9 fL (7.4-10.4); PLATELET COUNT 280 K/uL (130-400); RED BLOOD COUNT 4.48 M/uL (4.2-5.4); WHITE BLOOD COUNT 6.68 K/uL (4.8-10.8)
[2016-06-15 07:36] LABS: ESTIMATED AVERAGE GLUCOSE 114 mg/dl; HA1C FLAG Normal (Normal)
[2016-06-15] MEDS: METOPROLOL SUCC 50MG EXT REL TAB PO SCH (07:40)
[2016-06-15] MEDS: LOSARTAN POTASSIUM 50 MG TAB PO SCH (07:41)
[2016-06-15 08:24] VITALS: BP 124/85; PULSE 79; TEMP 36.8; O2SAT 97
[2016-06-15] MEDS ORDERED: ATORVASTATIN 20 MG TAB PO SCH (09:00)
[2016-06-15] MEDS ORDERED: ASPIRIN 81 MG ECTAB PO SCH (09:00)
--- NOTE | 2016-06-15 09:47 | ECHOCARDIOGRAM REPORT ---
*NOTICE TO RECEIVING [employer] This information is strictly Confidential and protected under [place] law. [place] law prohibits you from making any further disclosure of this information unless further disclosure is expressly permitted by the written consent of the person to whom it pertains or is authorized by law. A general authorization for the release of medical or other information is not sufficient for this purpose. Hospital accepts no responsibility if the information is made available to any other person, INCLUDING THE PATIENT. Interpretation Summary * Name: HARDEEP SANTAMARIA Study Date: 06/15/2016 07:00 AM BP: 134/82 mmHg * Patient Location: C.2E\S\E205\S\1 HR: 71 * : 1945 (M/d/yyyy) Gender: Female Height: 62 in * Age: 70 yrs Ethnicity: [place] Weight: 158 lb * Ordering Physician: Ana Partida * Referring Physician: Self, Referred * Performed By: Miriam Silva RDCS * * Reason For Study: LIGHTHEADED, WEAK, POSSIBLE TIA * BSA: 1.7 m2 * History: LIGHTHEADED, NAUSEA, WEAK, POSSIBLE TIA * -- Conclusions -- * 1. Normal LV size and wall thickness. * 2. Normal LV systolic function. LVEF 55-60%. No regional wall motion abnormalities. * 3. Normal RV size and function. * 4. No significant valvular pathology. * 5. Normal estimated RA and PA pressures. * 6. Negative saline contrast study for interatrial shunt. * 7. No prior studies for comparison. Procedure Details * A saline contrast injection was performed to assess for cardiac shunting. * The injection was performed through an intravenous line in the left arm. * The attending nurse who injected the saline contrast was RO JIMENEZ RN. * A total of 20 cc of agitated saline was given. Left Ventricle * The left ventricle is grossly normal size. * There is normal left ventricular wall thickness. * Ejection Fraction = 55-60%. * No regional wall motion abnormalities noted. Right Ventricle * The right ventricle is grossly normal size. * The right ventricular systolic function is normal as assessed by tricuspid annular plane systolic excursion (TAPSE) (normal >1.5 cm). Atria * The left atrial size is normal. * Right atrial size is normal. * Injection of contrast documented no interatrial shunt. Mitral Valve * The mitral valve is grossly normal. * There is no mitral valve stenosis. * There is trace mitral regurgitation. Tricuspid Valve * The tricuspid valve is not well visualized, but is grossly normal. * There is trace tricuspid regurgitation. Aortic Valve * The aortic valve opens well. * The aortic valve is trileaflet. * No hemodynamically significant valvular aortic stenosis. * There is no significant aortic regurgitation. Pulmonic Valve * The pulmonary valve is inadequately visualized, but the Doppler data is adequate for interpretation. * Trace pulmonic valvular regurgitation. Great Vessels * The aortic root and proximal ascending aorta are normal sized. Pericardium/Pleural * There is no pericardial effusion. Great Vessels * Normal inferior vena cava size and collapsability with sniff indicates a normal right atrial pressure of 3 mmHg * There is no evidence of pulmonary hypertension. The PA systolic pressure is less than 36 mmHg. Left Ventricular Diastolic Function * Grade I diastolic dysfunction, (abnormal relaxation pattern). MMode 2D Measurements and Calculations IVSd 0.99 cm IVSs 1.6 cm LVIDd 4.0 cm LVIDs 2.8 cm LVPWd 0.81 cm LVPWs 1.2 cm IVS/LVPW 1.2 FS 30.1 % EDV(Teich) 71.4 ml ESV(Teich) 30.0 ml EF(Teich) 57.9 % EDV(cubed) 65.6 ml ESV(cubed) 22.4 ml EF(cubed) 65.9 % % IVS thick 66.8 % % LVPW thick 50.0 % LV mass(C)d 110.9 grams LV mass(C)dI 64.1 grams/m\S\2 LV mass(C)s 134.5 grams LV mass(C)sI 77.8 grams/m\S\2 SV(Teich) 41.4 ml SI(Teich) 23.9 ml/m\S\2 SV(cubed) 43.2 ml SI(cubed) 25.0 ml/m\S\2 Ao root diam 3.4 cm Ao root area 9.1 cm\S\2 LA dimension 2.7 cm LA/Ao 0.80 LVAd ap4 23.6 cm\S\2 LVLd ap4 8.1 cm EDV(MOD-sp4) 56.9 ml EDV(sp4-el) 58.6 ml LVAs ap4 13.6 cm\S\2 LVLs ap4 6.5 cm ESV(MOD-sp4) 25.0 ml ESV(sp4-el) 23.9 ml EF(MOD-sp4) 56.0 % EF(sp4-el) 59.1 % LVAd ap2 24.1 cm\S\2 LVLd ap2 7.9 cm EDV(MOD-sp2) 62.3 ml EDV(sp2-el) 62.6 ml LVAs ap2 13.4 cm\S\2 LVLs ap2 6.6 cm ESV(MOD-sp2) 24.0 ml ESV(sp2-el) 23.1 ml EF(MOD-sp2) 61.5 % EF(sp2-el) 63.2 % LVLd %diff -2.80 % EDV(MOD-bp) 60.2 ml LVLs %diff 1.1 % ESV(MOD-bp) 24.5 ml EF(MOD-bp) 59.4 % SV(MOD-sp4) 31.9 ml SI(MOD-sp4) 18.4 ml/m\S\2 SV(MOD-sp2) 38.3 ml SI(MOD-sp2) 22.1 ml/m\S\2 SV(MOD-bp) 35.8 ml SI(MOD-bp) 20.7 ml/m\S\2 SV(sp4-el) 34.6 ml SI(sp4-el) 20.0 ml/m\S\2 SV(sp2-el) 39.6 ml SI(sp2-el) 22.9 ml/m\S\2 Doppler Measurements and Calculations MV E max krystal 72.3 cm/sec MV A max krystal 105.7 cm/sec MV E/A 0.68 MV dec time 0.26 sec Ao V2 max 121.2 cm/sec Ao max PG 5.9 mmHg Ao max PG (full) -0.92 mmHg LV V1 max PG 6.8 mmHg LV V1 max 130.4 cm/sec TR max krystal 218.7 cm/sec
--- NOTE | 2016-06-15 10:31 | Discharge Instructions ---
Discharge Instructions Date of Service Jun 15, 2016. Admission Reason for Admission: Vertigo, Weakness Discharge Discharge Diagnosis / Problem: Dizziness Discharge Goals Goal(s): Decrease discomfort, Improve function Activity Recommendations Activity Limitations: resume your previous activity . Instructions / Follow-Up Instructions / Follow-Up You were admitted for dizziness and evaluated for Stroke or a mini stroke Your CT head was normal and so was your echocardiogram Your symptoms likely appear to be due to vertigo but if you develop similar symptoms or weakness, numbness/tingling- please return to the ER Dizziness: - You may use meclizine 12.5 mg 1-2 tabs every 8 hours as needed for dizziness Continue to use aspirin and atorvastatin Hypertension: - Continue metoprolol and losartan as recommended Please follow up with PCP in 2-3 days Risk Factors for Stroke: You can reduce your chances of stroke by working with your medical provider to adopt a healthy lifestyle. Some specific ways to lower your chance of stroke are: * If you are a smoker, now is the time to stop smoking cigarettes * If you are diabetic, improve the control of your blood sugars * Avoid excessive amounts of alcohol * Control high blood pressure * Lose weight if you are overweight * Be sure to lead an active lifestyle * Eat a healthy diet low in salt, cholesterol and fat You should know about other risk factors for stroke that you are unable to control. These include: * Age 55 years or older * Male gender * Certain racial groups: , or / * Family History of Stroke, Mini stroke or Heart Attack * Sickle Cell Disease Follow Up: It is important for you to keep your follow up appointments with your medical provider. Current Hospital Diet Patient's current hospital diet: AHA Diet (Heart Healthy) Discharge Diet Recommended Diet: AHA Diet (Heart Healthy) Pending Studies Studies pending at discharge: no Laboratory Results Hemoglobin A1c Test 06/14/16 12:05 Range/Units Estimated Average Glucose 114 mg/dl Hemoglobin A1c 5.6 4.5-5.6 % Lipid Panel Test 06/15/16 03:40 Range/Units Triglycerides Level 79 0-150 mg/dl Cholesterol Level 126 0-200 mg/dl HDL Cholesterol 58 mg/dl Cholesterol/HDL Ratio 2.2 LDL Cholesterol, Calculated 52 mg/dl CT SCAN OF THE BRAIN WITHOUT IV CONTRAST CLINICAL HISTORY: Strokelike symptoms. COMPARISON STUDY: No priors. TECHNIQUE: Unenhanced axial CT scan of the brain is performed from the vertex to the skull base. CT DOSE: 537.48 mGy.cm FINDINGS: Brain parenchyma: There is minimal subcortical and periventricular microangiopathic change. There is no hemorrhage, mass effect, or evidence of acute territorial ischemia by CT criteria. Mendes-white matter is preserved. No extra-axial fluid collection is seen. Ventricles, sulci, cisterns: Prominent secondary to involutional change. Intracranial vasculature: There is minimal atherosclerotic calcification of the cavernous carotid arteries. Calvarium: Unremarkable. Sinuses and mastoids: The visualized paranasal sinuses are clear. The mastoid air cells are well pneumatized. Orbits: The bony orbits are grossly intact. IMPRESSION: There is no hemorrhage, mass effect, or evidence of acute territorial ischemia by CT criteria. Electronically signed by: Shayan Harris M.D. 06/14/2016 1:06 PM Dictated Date/Time: 06/14/2016 1:04 PM Medical Emergencies . Who to Call and When: Medical Emergencies: Call 911 immediately if you experience any of the following warning signs and symptoms of Stroke: * Sudden numbness or weakness of the face, arm or leg, especially on one side of the body * Sudden confusion, trouble speaking or understanding * Sudden trouble seeing in one or both eyes * Sudden trouble walking, dizziness, loss of balance or coordination * Sudden severe headache with no cause Do not delay calling 911 if you experience any warning signs or symptoms of a stroke. Delay in seeking medical attention may affect what treatments can be given to you. . Non-Emergent Contact Non-Emergency issues call your: Primary Care Provider . . "Provider Documentation" section prepared by Brittney Russell. . Stroke Core Measures Reason no t-PA for Stroke: Treatment not indicated Reason no antithrom by day 2: Treatment not indicated Reason no antithrom at D/C: Treatment not indicated Reason no statin at D/C: Treatment provided - N/A Reason no anticoag w/a fib: Treatment not indicated VTE Core Measure Inpt VTE Proph given/why not?: Enoxaparin (Lovenox)SQ, T.E.Isamar Noriega, SCD's Resident Tracking Resident Involvement: Resident Care Provided Care Provided: Adult [facility] Medicine
[2016-06-15] MEDS ORDERED: MECL1TAB40 PO ×2 (10:33→10:55)
--- NOTE | 2016-06-15 10:43 | Discharge Summary ---
Discharge Summary Date of Service Jun 15, 2016. (Brittney Russell MD) 06/15/2016 (Nick Salazar D.O.) Discharge Summary Admission Date: Jun 14, 2016 at 16:43 Discharge Date: Jun 15, 2016 Discharge Disposition: Home Principal Diagnosis: vertigo (Brittney Russell MD) Medication Reconciliation New Medications: Meclizine HCl (Meclizine HCl) 12.5 Mg Tab 1 TAB PO TID for 10 Days, #30 TAB Meclizine HCl (Meclizine HCl) 12.5 Mg Tab 1 TAB PO TID for 10 Days, #30 TAB Continued Medications: Aspirin (Aspirin Ec) 81 Mg Tab 81 MG PO DAILY Atorvastatin (Lipitor) 20 Mg Tab 20 MG PO DAILY, TAB Fish Oil (Chireno-3) 1 Ea Cap 1 CAP PO DAILY, CAP Losartan Potassium (Cozaar) 50 Mg Tab 50 MG PO BID, TAB Metoprolol Succinate (Metoprolol Succinate ER) 50 Mg Tabcr 50 MG PO BID Discharge Exam Feeling better. No longer feels dizziness, lightheadedness. Denies any blurry vision, slurring of speech, motor weakness, numbness or tingling Review of Systems: Constitutional: No chills, No fever Eyes: No worsening of vision ENT: No hearing loss Respiratory: No cough, No sputum Cardiovascular: No chest pain Abdomen: No nausea, No pain Musculoskeletal: No joint pain Genitourinary - Female: No dysuria Neurologic: No balance problems, No memory loss, No numbness/tingling, No paralysis, No weakness Psychiatric: No depression symptoms Endocrine: No fatigue Physical Exam: General Appearance: WD/WN Eyes: normal inspection ENT: normal ENT inspection, hearing grossly normal Neck: supple Respiratory/Chest: chest non-tender, normal breath sounds Cardiovascular: regular rate, rhythm Abdomen / GI: normal bowel sounds, non tender, soft Extremities: normal inspection, no calf tenderness, no pedal edema Neurologic/Psychiatric: specimen transporter II-XII nml as tested, no motor/sensory deficits , alert, normal mood/affect, normal reflexes, oriented x 3 Skin: normal color (Brittney Russell MD) Hospital Course This is a 70 y/o female with a history of hypertension, hyperlipidemia, and restless leg syndrome who presented to the ED on 06/14 with weakness, dizziness and nausea. The patient was out shopping with her when she suddenly felt warm all over. This was accompanied with dizziness and a sensation of the room spinning as well as nausea. The patient states she started dry heaving but denies actually vomiting. She states that she felt generally weak but felt that she might be somewhat weaker on the left side. Patient denies any facial droop, slurred speech, numbness or tingling, sudden vision loss or loss of consciousness. Despite her weakness/dizziness, the patient was able to walk out of the store unassisted without any difficulties. The patient states that a few nights ago she did experienced some weakness and pain in her left leg that had resolved on its own. She is unsure if she truly had left-sided weakness today or if she is just more aware of her left side due to the pain in her left leg previously. In the ambulance en route to the ED the patient received Valium and Zofran. Her nausea and weakness have resolved, and she no longer reports that the room spinning or any visual problems. She is still feeling lightheaded whenever she sits up or gets up to go the bathroom. The patient denies fevers, chills, sweats, chest pain, palpitations, claudication, cough, wheezing, shortness of breath, vomiting, abdominal pain, dysuria, hematuria, urinary retention, paralysis, numbness and tingling. She was admitted for further evaluation of possible TIA/stroke. Her symptoms appeared to be very likely secondary to vertigo Vertigo vs possible TIA -Carotid artery ultrasound: No hemodynamically significant stenosis seen within the carotid arteries -Echocardiogram: * 1. Normal LV size and wall thickness. * 2. Normal LV systolic function. LVEF 55-60%. No regional wall motion abnormalities. * 3. Normal RV size and function. * 4. No significant valvular pathology. * 5. Normal estimated RA and PA pressures. * 6. Negative saline contrast study for interatrial shunt. * 7. No prior studies for comparison. Head CT:There is no hemorrhage, mass effect, or evidence of acute territorial ischemia by CT criteria. -PT/OT ordered, Stevo maneuver -Recent lipid panel on 05/11/16 within normal limits -Hemoglobin A1c checked on 05/11/16 was 5.8 -Continue ASA 81 mg PO qd - Discharged with meclizine 12.5 mg 1-2 tabs 3 times a day as needed for dizziness HTN--stable -Continue losartan 50 mg PO BID and metoprolol succinate 50 mg PO BID HLD -Continue atorvastatin 20 mg PO qd She was discharged in stable condition and counseled about signs and symptoms to watch out for development of stroke or TIA and to return to the ER if she develops them. Total Time Spent: Less than 30 minutes This includes examination of the patient, discharge planning, medication reconciliation, and communication with other providers. (Brittney Russell MD) Resident Physician Supervision Note: I was present with Dr. Russell during the history and exam. I discussed the case with the resident and agree with the findings and plan as documented in the note. Any exceptions or clarifications are listed here: Please see my separate note for additional information dated 06/15/2016. Documented By: Nick Salazar (Nick Salazar.,D.O.) Discharge Instructions Please refer to the electronic Patient Visit Report (Discharge Instructions) for additional information. (Brittney Russell MD) Follow-Up Follow-up with PCP in 2-3 days (Brittney Russell MD) Additional Copies To Herminia Garcia, DO Resident Tracking Resident Involvement: Resident Care Provided Care Provided: Adult Hospital Medicine (Brittney Russell MD)
[2016-06-15 10:59] VITALS: BP 124/85; PULSE 79; TEMP 36.6; O2SAT 97
--- NOTE | 2016-06-15 17:55 | Progress Note ---
Progress Note Date of Service Jun 15, 2016. Progress Note Resident Physician Supervision Note: I was present with Dr. Russell on during the history and exam. Please see her separate documentation as well. 70-year-old female admitted after she experienced abrupt onset of vertigo and nausea while shopping at a local store yesterday. The patient left the store and went to the parking lot where she had several episodes of dry heaving. Since she was near her doctor's office, her drove her to see her doctor. She was found to be hypertensive and an ambulance was called. The patient explains that when she was examined by the i o psychologist, she had difficulty seeing his fingers when they moved to the left. I question the patient quite a bit about this; it does not seem as if she had a visual deficit , but rather due to the vertigo, when she moved her eyes to the left, she could see the fingers but due to the "waviness" she had difficulty telling her fingers he was holding up. Next, the patient explains that the i o psychologist made her turn her head quickly to the left and then dropped her head below her body - in essence it sounds as if the i o psychologist performed a Hallpike maneuver. Following this, the patient's vertigo suddenly improved. When she was in the emergency department, she had some mild symptoms but for the most part she has been asymptomatic since arriving at the hospital. Studies as noted - CT scan was negative. Her blood work has been unremarkable. A toxicology screen was negative. Lipid profile is excellent. It sounds as if the patient had acute labyrinthitis that resolved with a Hallpike maneuver; she has no symptoms today. We discussed the possibility of obtaining a brain MRI today, but suspicion is low for an ischemic event (TIA) based on her history. She felt comfortable for discharge. I recommended that she follow up with her primary care physician in one to 2 weeks. He should return to the emergency department and or call 911 should symptoms recur. We did review the signs and symptoms of a CVA and what to do should she experience these symptoms. Documented By: Nick Salazar
--- NOTE | 2016-06-23 09:55 | EDITING REQUIRED CODING QUERY ---
CQSUPPORTING DIAGNOSIS NEEDED A supporting diagnosis is required for the test/procedure performed on this patient in order for us to be reimbursed by the patient's insurance. Please provide a supporting diagnosis for the following test/procedure listed below next to the test name along with your signature. *If there is no additional diagnosis for this patient that would support the following test/procedure please document that below next to the test/procedure. Test(s)/Procedure(s) that require a supporting diagnosis: DOS 06/14/16 GLYCATED HEMOGLOBIN CONTROLLED SUBSTANCE NON-INVASIVE CEREBROVASCULAR RADIOLOGY A1c = diagnosis Elevated blood glucose Provider Signature: Date: Thank you Cari Schwartz Health Information Management Once completed, please kindly fax back to [phone] For questions please call [phone]
== END 2016-06-15 11:23 | disposition home or self-care (01) ==
LOC: ENRESERVTM → ENRESERVDT → EDBD 12:12 → C.EDC 12:16 → C.2E 16:43
PROVIDERS: ADMIT Family Medicine; ATTEND Family Medicine
DX: R42 Dizziness and giddiness (principal); I10 Essential (primary) hypertension; E78.5 Hyperlipidemia, unspecified; Z83.3 Family history of diabetes mellitus; Z82.49 Family history of ischemic heart disease and other diseases of the circulatory system; F17.200 Nicotine dependence, unspecified, uncomplicated; Z91.040 Latex allergy status; Z88.5 Allergy status to narcotic agent; R73.02 Impaired glucose tolerance (oral); I65.21 Occlusion and stenosis of right carotid artery

== ENCOUNTER → 2016-06-21 | Outpatient (CLI) | payer OTHER ==
[~2016-06-21] MED LIST changes: +MECL1TAB40 PO; +ONDA4TAB65 PO
[2016-06-21 18:36] LABS: URINE APPEARANCE CLEAR (CLEAR); URINE BILIRUBIN NEG (NEG); URINE COLOR YELLOW; URINE NITRITE NEG (NEG); URINE SPECIFIC GRAVITY 1.016 (1.000-1.030); UROBILINOGEN NEG (NEG)
[2016-06-21 18:42] LABS: MANUAL MICROSCOPIC REQUIRED? NO; REVIEW REQ? NO
== END | disposition home or self-care (01) ==
LOC: C.LABSPEC 17:37
PROVIDERS: ATTEND Nurse Practitioner Adult Health
DX: R31.29 Other microscopic hematuria (principal)

== ENCOUNTER → 2016-07-12 | Outpatient (CLI) | payer OTHER ==
[~2016-07-12] MED LIST changes: -MECL1TAB40 PO
== END | disposition home or self-care (01) ==
LOC: C.LABSPEC 17:02
PROVIDERS: ATTEND Nurse Practitioner Adult Health
DX: R31.29 Other microscopic hematuria (principal); R82.99 Other abnormal findings in urine

== ENCOUNTER → 2016-07-24 | Outpatient (CLI) | payer OTHER ==
[~2016-07-24] MED LIST changes: +OPTIRAY 320 IV PRN
--- NOTE | 2016-07-24 14:06 | DIAGNOSTIC IMAGING REPORT ---
CT UROGRAM CLINICAL HISTORY: Microscopic hematuria COMPARISON STUDY: No priors. TECHNIQUE: Before and following the IV administration of 119 cc of Optiray 320, CT urogram of the abdomen and pelvis is performed from the lung bases to the proximal femora. Images are reviewed in the axial, sagittal, and coronal planes. IV contrast was administered without complication. CT DOSE: 1400.06 mGycm FINDINGS: Lung bases: The heart is enlarged and without pericardial effusion. Scarring versus atelectasis is present in the medial segment of the right middle lobe. No airspace consolidation is identified typical for pneumonia and there is no pleural effusion. Dependent atelectasis is observed. Liver: The contrast-enhanced liver is normal in size, contour, and attenuation. There is no intrahepatic biliary ductal dilatation. The hepatic veins and portal veins are patent. Gallbladder: Unremarkable. Spleen: Normal in size and attenuation. Pancreas: Unremarkable. Adrenal glands: Unremarkable. Kidneys and ureters: The contrast enhanced kidneys demonstrate minimal cortical atrophy and are without hydronephrosis. There are no renal calculi identified on the unenhanced images. The kidneys enhance and excrete symmetrically. There is no enhancing renal cortical mass lesion identified. There is no evidence of urothelial lesion within the renal pelvis bilaterally or along the course of either ureter. Abdominal vasculature: The abdominal aorta is normal in course and caliber noting mild to moderate atherosclerotic calcification. Bowel: The small bowel and colon are normal in course and caliber. The appendix is well-visualized and normal. Peritoneum: There is no intraperitoneal free air or abdominal ascites. Lymphadenopathy: None. Pelvic viscera: The bladder is largely decompressed and normal as visualized. The uterus is heterogeneous and there are calcified uterine fibroids. No adnexal lesion is seen. Numerous phleboliths are present in the pelvis. Skeletal structures: The skeletal structures are osteopenic. No lytic or blastic lesions are seen. There are bilateral pars defects at L5 with advanced degenerative disc space narrowing and 11 mm of anterolisthesis at L5-S1. Mild spondylotic change is seen at the remaining lumbar levels. Sclerotic change is noted at the pubic symphysis. IMPRESSION: 1. Unremarkable CT urogram. 2. The bladder is partially decompressed and normal as visualized. 3. Cardiomegaly. 4. The uterus is heterogeneous and there are calcified fibroids. This can be followed with a pelvic ultrasound if clinically warranted. 5. Additional findings as above. Electronically signed by: Shayan Harris M.D. 07/24/2016 2:05 PM Dictated Date/Time: 07/24/2016 1:55 PM
== END | disposition home or self-care (01) ==
LOC: C.CTS 12:49
PROVIDERS: ATTEND Nurse Practitioner Adult Health
DX: R31.29 Other microscopic hematuria (principal); I51.7 Cardiomegaly; D25.9 Leiomyoma of uterus, unspecified

== ENCOUNTER 2016-10-06 17:44 | Emergency (ER) | payer OTHER ==
[~2016-10-06] VITALS: Ht 157.5 cm; Wt 69.2 kg
[~2016-10-06 17:44] MED LIST changes: -ONDA4TAB65 PO; -OPTIRAY 320 IV PRN
[2016-10-06 17:47] VITALS: TEMP 36.7; Ht 157.5 cm; Wt 69.2 kg
[2016-10-06] MEDS ORDERED: ONDANSETRON INJ 2 MG/ML 2 ML VIAL IV STA ×2 (17:58→20:00)
[2016-10-06] MEDS ORDERED: SODIUM CHLORIDE 0.9% 1000ML 1,000 ML IV STA (17:58)
[2016-10-06] MEDS ORDERED: HYDROmorphone INJ 0.5 MG/0.5 ML SYR IV STA (18:09)
[2016-10-06 18:20] VITALS: O2SAT 100
[2016-10-06 18:21] LABS: BASO % 0.5 %; BASO ABS # 0.04 K/uL (0-0.2); COMPLETE YES; EOS % 3.9 %; HEMATOCRIT 37.4 % (37-47); IG% 0.3 %; LYMPH % 47.7 %; LYMPH ABS # 3.79 K/uL (1.2-3.4); MEAN CELL VOLUME 81.7 fL (80-100); MEAN CORPUSCULAR HEMOGLOBIN 28.4 pg (25-34); MEAN CORPUSCULAR HGB CONC 34.8 g/dl (32-36); MEAN PLATELET VOLUME 9.2 fL (7.4-10.4); MONO % 7.2 %; NEUT % 40.4 %; PLATELET COUNT 262 K/uL (130-400); RED BLOOD COUNT 4.58 M/uL (4.2-5.4); WHITE BLOOD COUNT 7.95 K/uL (4.8-10.8)
[2016-10-06 18:35] LABS: URINE APPEARANCE CLEAR (CLEAR); URINE BILIRUBIN NEG (NEG); URINE COLOR YELLOW; URINE NITRITE NEG (NEG); URINE PH 6.5 (4.5-7.5); URINE SPECIFIC GRAVITY 1.018 (1.000-1.030); UROBILINOGEN NEG (NEG); ZZUR CULT IF INDIC CLEAN CATCH NO
[2016-10-06 18:41] LABS: AST/SGOT 20 U/L (15-37); BLOOD UREA NITROGEN 20 mg/dl (7-18); BUN/CREATININE RATIO 24.7 (10-20); CALCIUM 8.9 mg/dl (8.5-10.1); CARBON DIOXIDE 26 mmol/L (21-32); CHLORIDE 100 mmol/L (98-107); CREATININE 0.81 mg/dl (0.60-1.20); GLUCOSE 102 mg/dl (70-99); POTASSIUM 3.4 mmol/L (3.5-5.1); SODIUM 132 mmol/L (136-145)
[2016-10-06 18:42] LABS: MANUAL MICROSCOPIC REQUIRED? NO; REVIEW REQ? NO
[2016-10-06 18:43] LABS: ALKALINE PHOSPHATASE 78 U/L (45-117); ALT/SGPT 30 U/L (12-78)
[2016-10-06] MEDS ORDERED: OPTIRAY 320 IV PRN (18:45)
[2016-10-06] MEDS ORDERED: HYDROmorphone INJ 1 MG/ML SYR IV STA (18:47)
--- NOTE | 2016-10-06 19:25 | DIAGNOSTIC IMAGING REPORT ---
CT SCAN OF THE ABDOMEN WITH IV CONTRAST CLINICAL HISTORY: Generalized abdominal pain. COMPARISON STUDY: Abdominal CT dated 07/24/2016. TECHNIQUE: Following the IV administration of 120 cc of Optiray 320, CT scan of the abdomen and pelvis is performed from the lung bases to the proximal femora. Images are reviewed in the axial, sagittal, and coronal planes. IV contrast was administered without complication. CT DOSE: 308.16 mGy.cm FINDINGS: Lung bases: The heart is enlarged and without pericardial effusion. Scarring versus atelectasis is present in the medial segment of the right middle lobe. No airspace consolidation is identified typical for pneumonia and there is no pleural effusion. Dependent atelectasis is observed. Liver: The contrast-enhanced liver is normal in size, contour, and attenuation. There is no intrahepatic biliary ductal dilatation. The hepatic veins and portal veins are patent. Gallbladder: Unremarkable. Spleen: Normal in size and attenuation. Pancreas: Unremarkable. Adrenal glands: Unremarkable. Kidneys and ureters: The contrast enhanced kidneys demonstrate minimal cortical atrophy and are without hydronephrosis. The kidneys enhance symmetrically. Abdominal vasculature: The abdominal aorta is normal in course and caliber noting mild to moderate atherosclerotic calcification. Bowel: The small bowel and colon are normal in course and caliber. The appendix is well-visualized and normal. Peritoneum: There is no intraperitoneal free air or abdominal ascites. Lymphadenopathy: None. Pelvic viscera: The bladder is normal in appearance the uterus is heterogeneous and there are calcified uterine fibroids. No adnexal lesion is seen. Numerous phleboliths are present in the pelvis. Skeletal structures: The skeletal structures are osteopenic. No lytic or blastic lesions are seen. There are bilateral pars defects at L5 with advanced degenerative disc space narrowing and 11 mm of anterolisthesis at L5-S1. Mild spondylotic change is seen at the remaining lumbar levels. Sclerotic change is noted at the pubic symphysis. IMPRESSION: There are no acute infectious or inflammatory findings in the abdomen or pelvis. Electronically signed by: Shayan Harris M.D. 10/06/2016 7:24 PM Dictated Date/Time: 10/06/2016 7:19 PM
[2016-10-06] MEDS ORDERED: ONDANSETRON INJ 2 MG/ML 2 ML VIAL ONE (20:01)
[2016-10-06] MEDS ORDERED: METOCLOPRAMIDE HCL INJ 5 MG/ML 2 ML VIAL IV STA (20:18)
[2016-10-06] MEDS ORDERED: ONDA4TAB65 PO (21:13)
[2016-10-06 21:31] VITALS: BP 140/93
[2016-10-06 21:35] VITALS: PULSE 83; O2SAT 93
--- NOTE | 2016-10-06 23:37 | EMERGENCY ROOM VISIT NOTE ---
History Report prepared by Natalie: Sameer Arzola Under the Supervision of: Isamar GonzalezO. First contact with patient: 17:51 Chief Complaint: ABDOMINAL PAIN Stated Complaint: PAIN IN STOMACH History of Present Illness The patient is a 70 year old female who presents to the Emergency Room with complaints of diffuse cramping abdominal pain that began 1 hour ago. She rates her pain an 8/10 in severity. She has been experiencing this pain intermittently for 1 month. She states it usually passes after an hour, but it did not pass today. The only thing that makes her pain mildly better is being in the position. She notes some blood with wiping after attempting to urine. She still has her gallbladder, appendix, and uterus. She has a past medical history of a and a bilateral oophorectomy. Pt denies headache , change in vision, fevers, chest pain, shortness of breath, nausea, vomiting, diarrhea, pain with urination, and melena. Source of History: patient Onset: 1 hour ago Position: abdomen (diffuse) Symptom Intensity: 8/10 Quality: cramping Timing: constant Modifying Factors (Relieving): rest ( position) Associated Symptoms: No fevers, No headache, No chest pain, No SOB, No nausea, No vomiting, No melena, No diarrhea, No urinary symptoms Review of Systems See HPI for pertinent positives & negatives. A total of 10 systems reviewed and were otherwise negative. Past Medical & Surgical Medical Problems: (1) HTN (hypertension) (2) Weakness Family History Coronary artery disease Diabetes mellitus Heart disease Hypertension Myelodysplasia Myocardial infarction Ovarian cancer Social History Smoking Status: Never Smoker Alcohol Use: occasionally Drug Use: none Marital Status: Housing Status: lives with family Occupation Status: retired Current/Historical Medications Scheduled Aspirin (Aspirin Ec), 81 MG PO QPM Atorvastatin (Lipitor), 20 MG PO DAILY Fish Oil (Saxis-3), 1 CAP PO DAILY Losartan Potassium (Cozaar), 50 MG PO BID Metoprolol Succinate (Metoprolol Succinate ER), 50 MG PO BID Ondansetron Hcl (Zofran), 4 MG PO PRN Allergies Coded Allergies: Latex (Verified Allergy, Unknown, lip swelling, 10/06/16) Morphine (Verified Allergy, Unknown, headache,n/v, 10/06/16) Physical Exam Vital Signs Date Time Temp Pulse Resp B/P (MAP) Pulse Ox O2 Delivery O2 Flow Rate FiO2 10/06/16 21:35 83 18 93 10/06/16 21:31 140/93 10/06/16 21:20 89 17 97 10/06/16 21:05 83 93 10/06/16 21:02 162/79 10/06/16 20:50 82 15 94 10/06/16 20:45 82 25 94 10/06/16 20:32 191/39 10/06/16 20:30 86 13 87 10/06/16 20:15 17 96 10/06/16 20:15 94 97 10/06/16 20:10 85 97 10/06/16 20:01 141/95 10/06/16 19:55 86 92 10/06/16 19:42 88 10/06/16 19:40 85 17 91 10/06/16 19:31 124/74 10/06/16 19:25 89 20 93 10/06/16 19:20 86 18 96 10/06/16 19:01 150/89 10/06/16 19:00 87 98 10/06/16 18:55 80 98 10/06/16 18:46 142/110 10/06/16 18:20 100 Room Air 10/06/16 18:19 80 20 164/99 99 Room Air 10/06/16 17:47 36.7 89 17 162/93 98 Room Air Physical Exam GENERAL: alert, uncomfortable appearing, well nourished, no distress, non-toxic , sitting up in bed, holding abdomen. EYE EXAM: normal conjunctiva OROPHARYNX: no exudate, no erythema, lips, buccal mucosa, and tongue normal and mucous membranes are moist NECK: supple, no nuchal rigidity, no adenopathy, non-tender LUNGS: Clear to auscultation. Normal chest wall mechanics HEART: no murmurs, S1 normal and S2 normal ABDOMEN: abdomen soft, faint diffuse tenderness, normo-active bowel sounds, no masses, no rebound or guarding. BACK: Back is symmetrical on inspection and there is no deformity, no midline tenderness, no CVA tenderness. SKIN: no rashes and no bruising UPPER EXTREMITIES: upper extremities are grossly normal. LOWER EXTREMITIES: No pitting edema. NEURO EXAM: Normal sensorium, cranial nerves II-XII grossly intact, normal speech, no gross weakness of arms, no gross weakness of legs. Medical Decision & Procedures ER Provider Diagnostic Interpretation: Radiology results as stated below per my review and the radiologist's interpretation: CT SCAN OF THE ABDOMEN WITH IV CONTRAST CLINICAL HISTORY: Generalized abdominal pain. COMPARISON STUDY: Abdominal CT dated 07/24/2016. TECHNIQUE: Following the IV administration of 120 cc of Optiray 320, CT scan of the abdomen and pelvis is performed from the lung bases to the proximal femora. Images are reviewed in the axial, sagittal, and coronal planes. IV contrast was administered without complication. CT DOSE: 308.16 mGy.cm FINDINGS: Lung bases: The heart is enlarged and without pericardial effusion. Scarring versus atelectasis is present in the medial segment of the right middle lobe. No airspace consolidation is identified typical for pneumonia and there is no pleural effusion. Dependent atelectasis is observed. Liver: The contrast-enhanced liver is normal in size, contour, and attenuation. There is no intrahepatic biliary ductal dilatation. The hepatic veins and portal veins are patent. Gallbladder: Unremarkable. Spleen: Normal in size and attenuation. Pancreas: Unremarkable. Adrenal glands: Unremarkable. Kidneys and ureters: The contrast enhanced kidneys demonstrate minimal cortical atrophy and are without hydronephrosis. The kidneys enhance symmetrically. Abdominal vasculature: The abdominal aorta is normal in course and caliber noting mild to moderate atherosclerotic calcification. Bowel: The small bowel and colon are normal in course and caliber. The appendix is well-visualized and normal. Peritoneum: There is no intraperitoneal free air or abdominal ascites. Lymphadenopathy: None. Pelvic viscera: The bladder is normal in appearance the uterus is heterogeneous and there are calcified uterine fibroids. No adnexal lesion is seen. Numerous phleboliths are present in the pelvis. Skeletal structures: The skeletal structures are osteopenic. No lytic or blastic lesions are seen. There are bilateral pars defects at L5 with advanced degenerative disc space narrowing and 11 mm of anterolisthesis at L5-S1. Mild spondylotic change is seen at the remaining lumbar levels. Sclerotic change is noted at the pubic symphysis. IMPRESSION: There are no acute infectious or inflammatory findings in the abdomen or pelvis. Electronically signed by: Shayan Harris M.D. 10/06/2016 7:24 PM Dictated Date/Time: 10/06/2016 7:19 PM Laboratory Results 10/06/16 18:10 Red Blood Count 4.58, Mean Corpuscular Volume 81.7, Mean Corpuscular Hemoglobin 28.4, Mean Corpuscular Hemoglobin Concent 34.8, Mean Platelet Volume 9.2, Neutrophils (%) (Auto) 40.4, Lymphocytes (%) (Auto) 47.7, Monocytes (%) (Auto) 7.2, Eosinophils (%) (Auto) 3.9, Basophils (%) (Auto) 0.5, Neutrophils # (Auto) 3.22, Lymphocytes # (Auto) 3.79, Monocytes # (Auto) 0.57, Eosinophils # (Auto) 0.31, Basophils # (Auto) 0.04 10/06/16 18:10 Test 10/06/16 18:02 10/06/16 18:10 Urine Color YELLOW Urine Appearance CLEAR (CLEAR) Urine pH 6.5 (4.5-7.5) Urine Specific [place] 1.018 (1.000-1.030) Urine Protein NEG (NEG) Urine Glucose (UA) NEG (NEG) Urine Ketones NEG (NEG) Urine Occult Blood 3+ (NEG) Urine Nitrite NEG (NEG) Urine Bilirubin NEG (NEG) Urine Urobilinogen NEG (NEG) Urine Leukocyte Esterase NEG (NEG) Urine WBC (Auto) 1-5 /hpf (0-5) Urine RBC (Auto) >30 /hpf (0-4) Urine Hyaline Casts (Auto) 0 /lpf (0-5) Urine Epithelial Cells (Auto) 10-20 /lpf (0-5) Urine Bacteria (Auto) NEG (NEG) White Blood Count 7.95 K/uL (4.8-10.8) Red Blood Count 4.58 M/uL (4.2-5.4) Hemoglobin 13.0 g/dL (12.0-16.0) Hematocrit 37.4 % (37-47) Mean Corpuscular Volume 81.7 fL (80-100) Mean Corpuscular Hemoglobin 28.4 pg (25-34) Mean Corpuscular Hemoglobin Concent 34.8 g/dl (32-36) Platelet Count 262 K/uL (130-400) Mean Platelet Volume 9.2 fL (7.4-10.4) Neutrophils (%) (Auto) 40.4 % Lymphocytes (%) (Auto) 47.7 % Monocytes (%) (Auto) 7.2 % Eosinophils (%) (Auto) 3.9 % Basophils (%) (Auto) 0.5 % Neutrophils # (Auto) 3.22 K/uL (1.4-6.5) Lymphocytes # (Auto) 3.79 K/uL (1.2-3.4) Monocytes # (Auto) 0.57 K/uL (0.11-0.59) Eosinophils # (Auto) 0.31 K/uL (0-0.5) Basophils # (Auto) 0.04 K/uL (0-0.2) RDW Standard Deviation 41.1 fL (36.4-46.3) RDW Coefficient of Variation 13.7 % (11.5-14.5) Immature Granulocyte % (Auto) 0.3 % Immature Granulocyte # (Auto) 0.02 K/uL (0.00-0.02) Anion Gap 6.0 mmol/L (3-11) Est Creatinine Clear Calc Drug Dose 59.8 ml/min Estimated GFR () 85.9 Estimated GFR (Non- 74.1 BUN/Creatinine Ratio 24.7 (10-20) Calcium Level 8.9 mg/dl (8.5-10.1) Total Bilirubin 0.4 mg/dl (0.2-1) Direct Bilirubin < 0.1 mg/dl (0-0.2) Aspartate Amino Transf (AST/SGOT) 20 U/L (15-37) Alanine Aminotransferase (ALT/SGPT) 30 U/L (12-78) Alkaline Phosphatase 78 U/L (45-117) Total Protein 7.7 gm/dl (6.4-8.2) Albumin 3.7 gm/dl (3.4-5.0) Lipase 168 U/L (73-393) Laboratory results per my review. Medications Administered Medications (Trade) Dose Ordered Sig/Jesús Route Start Time Stop Time Status Last Admin Dose Admin Sodium Chloride 1,000 ml @ 999 mls/hr Q1H1M STAT IV 10/06/16 17:58 18 18:58 DC 10/06/16 17:58 999 MLS/HR Ondansetron HCl (Zofran Inj) 4 mg NOW STAT IV 10/06/16 17:58 10/06/16 17:59 DC 10/06/16 18:11 4 MG Hydromorphone HCl (Dilaudid Inj) 0.5 mg NOW STAT IV 10/06/16 18:09 10/06/16 18:10 DC 10/06/16 18:15 0.5 MG Hydromorphone HCl (Dilaudid Inj) 1 mg NOW STAT IV 10/06/16 18:47 10/06/16 18:48 DC 10/06/16 18:54 1 MG Ondansetron HCl (Zofran Inj) 4 mg NOW STAT IV 10/06/16 20:00 10/06/16 20:01 DC 10/06/16 20:04 4 MG Metoclopramide HCl (Reglan Inj) 10 mg NOW STAT IV 10/06/16 20:18 10/06/16 20:19 DC 10/06/16 20:24 10 MG ED Course ED COURSE: Vital signs were reviewed and showed hypertension. The patients medical record was reviewed The above diagnostic studies were performed and reviewed. ED treatments and interventions as stated above. 1751: The patient was evaluated in room A12B. A complete history and physical examination was performed. 1758: Ordered Zofran Inj 4 mg IV, Sodium Chloride 1000 ml @ 999 mls/hr IV 1809: Ordered Dilaudid Inj 0.5 mg IV 1847: Ordered Dilaudid Inj 1 mg IV 2000: The patient began to vomit. Ordered Zofran Inj 4 mg IV 2000: Ordered Zofran Inj 4 mg .ROUTE 2018: Ordered Reglan Inj 10 mg IV 2118: She began to vomit again. The patient states that this is the exactly how she felt in the past when she received Morphine. She feels like she is floating and it is making her nauseated. She would not like any more antiemetics. She is going to try to eat crackers. 2141: Upon reevaluation, the patient is resting. I discussed my findings with the patient and she understands and agrees with the treatment plan. The patient remained stable while under my care. The patient appeared well at the time of discharge. Medical Decision Differential diagnoses includes but is not limited to gastritis, peptic ulcer disease, GERD, gallbladder disease, pancreatitis, small bowel obstruction, acute coronary syndrome, pericarditis, ischemic bowel, irritable bowel disease, irritable bowel syndrome, appendicitis, diverticulitis, malignancy, hernia, urinary tract infection, torsion, perforation, trauma, infectious. Patient is a 70-year-old female who presents the ER for diffuse abdominal cramping which has been coming and going for the past month. She notes that has been worse today. She is a previous resection of her ovaries. Patient has no other complaints. On exam she has no signs of peritonitis or rebound. Vitals were stable. Labs were obtained and were remarkable for a mild hypokalemia. No signs of pancreatitis. Bilirubin was unremarkable along with LFTs. No leukocytosis. Urine showed +3 blood which the patient notes is normal for her. CT of her abdomen and pelvis is negative. No acute pathology. She was given a dose of Dilaudid following which she became very sick. She is given multiple doses of Zofran and Reglan. She notes this feels exactly like when she had a reaction to morphine. She eventually requested crackers and was able to tolerate this. She is discharged follow-up with her PCP. Discussed with Pt concerning signs and symptoms to watch out for. Pt was instructed to follow up with their PCP and discussed with the patient their option to return to the ED at anytime for persistent or worsening symptoms. The appropriate anticipatory guidance and out-patient management, including indications for return to the emergency department, were explained at length to the patient and understood. Medication Reconcilliation Current Medication List: was personally reviewed by me Blood Pressure Screening Patient's blood pressure: Elevated blood pressure Blood pressure disposition: Elevated BP felt to be situational Impression Primary Impression: Abdominal pain Additional Impression: Hypokalemia Scribe Attestation The scribe's documentation has been prepared under my direction and personally reviewed by me in its entirety. I confirm that the note above accurately reflects all work, treatment, procedures, and medical decision making performed by me. Departure Information Dispostion Home / Self-Care Prescriptions Ondansetron Hcl (ZOFRAN) 4 Mg Tab 4 MG PO PRN, #20 TAB Prov: Kendell Rausch DO 10/06/16 Referrals Herminia Garcia DO (PCP) Forms HOME CARE DOCUMENTATION FORM, IMPORTANT VISIT INFORMATION Patient Instructions Abdominal Pain - [facility] Additional Instructions Please follow up with your primary care doctor or if you are a student, [facility] with in the next 24 hours. Any worsening of your symptoms, please return to the ED immediately. This includes any fevers greater than 100.4, worsening pain, chest pain, shortness breath, persistent nausea, vomiting, unable to eat or drink, or any other concerning signs or symptoms from your standpoint. You were given medications during this visit that will inhibit your ability to drive, operate machinery and work. Please do NOT drive, operate machinery, drink alcohol or work for the next 12hrs. You were found to have a blood pressure greater than 120 systolic over 90 diastolic. Due to the new Medicare guidelines, we are now recommending that you follow up with your primary care doctor in regards to this elevated blood pressure. Problem Qualifiers Primary Impression: Abdominal pain Abdominal location: generalized Qualified Codes: R10.84 - Generalized abdominal pain
== END 2016-10-06 21:46 | disposition home or self-care (01) ==
LOC: C.EDB 17:45 → C.EDA 21:46
DX: R10.84 Generalized abdominal pain (principal); E87.6 Hypokalemia; I10 Essential (primary) hypertension; Z79.82 Long term (current) use of aspirin; Z79.899 Other long term (current) drug therapy; Z80.41 Family history of malignant neoplasm of ovary; Z82.49 Family history of ischemic heart disease and other diseases of the circulatory system; Z83.3 Family history of diabetes mellitus; Z84.89 Family history of other specified conditions

== ENCOUNTER → 2016-11-01 | Outpatient (CLI) | payer OTHER ==
--- NOTE | 2016-11-01 14:27 | DIAGNOSTIC IMAGING REPORT ---
THYROID ULTRASOUND HISTORY: THYROID NODULE COMPARISON: Thyroid ultrasound 11/25/2015. FINDINGS: Right lobe: 5.3 x 1.8 x 1.8 cm. Multiple nodules are again noted. The largest solid and cystic nodule within the lower pole measures 1.9 x 1.6 x 1.4 cm. This has decreased in size. This previously measured 2.9 x 1.8 x 1.5 cm. There is a similar-appearing 1 cm heterogeneous nodule within the interpolar region which has also slightly decreased in size. Left lobe: 5.1 x 1.4 x 1.4 cm. The solid and cystic 1.6 x 1.1 x 0.9 cm nodule has slightly decreased in size. Isthmus: 2 mm in thickness. No nodules. IMPRESSION: Multinodular thyroid gland is again noted. Dominant bilateral nodules have decreased in size in the interval. Electronically signed by: Barber Sepulveda M.D. 11/01/2016 2:26 PM Dictated Date/Time: 11/01/2016 2:22 PM
== END | disposition home or self-care (01) ==
LOC: C.ULTR 13:03
PROVIDERS: ATTEND Physician Assistant
DX: E04.1 Nontoxic single thyroid nodule (principal)

== ENCOUNTER → 2016-11-23 | Outpatient (CLI) | payer OTHER ==
[2016-11-23 11:18] LABS: ALT/SGPT 30 U/L (12-78); AST/SGOT 15 U/L (15-37); BLOOD UREA NITROGEN 16 mg/dl (7-18); BUN/CREATININE RATIO 21.7 (10-20); CARBON DIOXIDE 27 mmol/L (21-32); CHLORIDE 104 mmol/L (98-107); CREATININE 0.75 mg/dl (0.60-1.20); GLUCOSE 85 mg/dl (70-99); POTASSIUM 3.9 mmol/L (3.5-5.1); SODIUM 138 mmol/L (136-145)
[2016-11-23 11:25] LABS: ALB/GLOB RATIO 0.9 (0.9-2); ALKALINE PHOSPHATASE 76 U/L (45-117); CHOLESTEROL 121 mg/dl (0-200); CHOLESTEROL/HDL RATIO 2.1; HDL CHOLESTEROL 59 mg/dl; LDL CHOLESTEROL CALCULATED 50 mg/dl; TRIGLYCERIDES 59 mg/dl (0-150); VERY LOW DENSITY LIPOPROT CALC 12 mg/dl
== END | disposition home or self-care (01) ==
LOC: C.LABBC 07:40
PROVIDERS: ATTEND Physician Assistant
DX: I10 Essential (primary) hypertension (principal); E78.5 Hyperlipidemia, unspecified; R73.03 Prediabetes; M81.0 Age-related osteoporosis without current pathological fracture; E55.9 Vitamin D deficiency, unspecified; E04.2 Nontoxic multinodular goiter

== ENCOUNTER → 2017-06-14 | Outpatient (CLI) | payer OTHER ==
[2017-06-14 11:07] LABS: T3 FREE 3.46 pg/ml (2.30-4.20)
[2017-06-14 11:08] LABS: HEMOGLOBIN A1C 5.7 % (4.5-5.6)
[2017-06-14 11:16] LABS: ALBUMIN 3.7 gm/dl (3.4-5.0); ALKALINE PHOSPHATASE 88 U/L (45-117); ALT/SGPT 36 U/L (12-78); AST/SGOT 21 U/L (15-37); BLOOD UREA NITROGEN 18 mg/dl (7-18); CARBON DIOXIDE 27 mmol/L (21-32); CHOLESTEROL 135 mg/dl (0-200); CREATININE 0.81 mg/dl (0.60-1.20); GLUCOSE 95 mg/dl (70-99); POTASSIUM 4.3 mmol/L (3.5-5.1); SODIUM 134 mmol/L (136-145); TOTAL PROTEIN 7.8 gm/dl (6.4-8.2)
[2017-06-14 11:21] LABS: LDL CHOLESTEROL CALCULATED 69 mg/dl
== END | disposition home or self-care (01) ==
LOC: C.LABBC 07:36
PROVIDERS: ATTEND Physician Assistant
DX: I10 Essential (primary) hypertension (principal); E78.5 Hyperlipidemia, unspecified; M81.0 Age-related osteoporosis without current pathological fracture; R73.03 Prediabetes; E04.2 Nontoxic multinodular goiter

== ENCOUNTER → 2017-07-03 | Outpatient (CLI) | payer OTHER ==
--- NOTE | 2017-07-04 15:23 | MAMMOGRAPHY REPORT ---
BILATERAL DIGITAL SCREENING MAMMOGRAM TOMOSYNTHESIS WITH CAD: 07/03/2017 CLINICAL HISTORY: Routine screening. Patient has no complaints. TECHNIQUE: Breast tomosynthesis in addition to standard 2D mammography was performed. Current study was also evaluated with a Computer Aided Detection (CAD) system. COMPARISON: Comparison is made to exams dated: 05/09/2016 mammogram, 02/08/2016 mammogram, 02/03/2016 mammogram, 01/29/2015 mammogram, 01/08/2015 mammogram, and 05/09/2016 ultrasound - [facility]. BREAST COMPOSITION: The tissue of both breasts is heterogeneously dense, which may obscure small mas ses. FINDINGS: There are scattered stable benign-appearing coarse and round microcalcifications. No suspi cious mass, architectural distortion or cluster of suspicious microcalcifications is seen. IMPRESSION: ACR BI-RADS CATEGORY 1: NEGATIVE There is no mammographic evidence of malignancy. A 1 year screening mammogram is recommended. The pa tient will receive written notification of the results. Approximately 10% of breast cancers are not detected with mammography. A negative mammographic report should not delay biopsy if a clinically suggestive mass is present. Beba Rivera M.D. ay/:07/03/2017 15:47:23 Tactical/Mobile Watch Officer: Neha PACHECO(Lexi)(M), [facility] letter sent: Normal 1/2 BI-RADS Code: ACR BI-RADS Category 1: Negative
== END | disposition home or self-care (01) ==
LOC: C.MAMM 10:26
PROVIDERS: ATTEND Family Medicine
DX: Z12.31 Encounter for screening mammogram for malignant neoplasm of breast (principal)